=== PATIENT | female | born 1955 | race Caucasian/White ===

== ENCOUNTER 2019-04-14 20:49 | Emergency (ER) | payer BC, OTHER ==
--- OUTSIDE RECORDS SUMMARY | 2019-04-14 21:26 | XMS REPORT | Continuity of Care Document ---
:1955 External Reference #:[id number] Author Name Nay Maurer Care Team Providers Name Role Phone Bradford Cheney M.D. - Family Care Team Information [employer] [phone] Medicine Social History Type Date Description Comments Sex Unknown Procedures Date Code Description Status 04/02/2019 29772 Duplex Scan Extremity Veins, Unilateral Or Limited Study Completed 04/02/2019 42643 Duplex Scan Extremity Veins, Unilateral Or Limited Study Completed Assessments Date Code Description Provider 04/02/2019 M79.605 Pain in left leg Leonel Hall M.D. 04/02/2019 M79.605 Pain in left leg Vas West 2
--- OUTSIDE RECORDS SUMMARY | 2019-04-14 21:27 | XMS REPORT | Continuity of Care Document ---
:1955 External Reference #:[id number] Author Name Bradford Cheney M.D. Address [address] [place] [address] Care Team Providers Name Role Phone Bradford Cheney M.D. 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 Breana Talamantes Group Name: Melvin [address] PayID: [id number] [place] [address] Problems Active Problems Provider Date Benign essential hypertension Bradford Cheney M.D. Onset: 05/31/2010 Asthma without status asthmaticus Bradford Cheney M.D. Onset: 05/31/2010 Hyperlipidemia Bradford Cheney M.D. Onset: 05/31/2010 Pulmonary embolism Bradford Cheney M.D. Onset: 08/29/2011 Herpes zoster without complication Bradford Cheney M.D. Onset: 12/30/2018 Morbid obesity Bradford Cheney M.D. Onset: 12/30/2018 Family History Date Family Member(s) Observation Comments Father Thyroid Disease Father Skin Cancer Father Heart Disease Father Hyperlipidemia Mother due to COPD () Siblings Many Social History Type Date Description Comments Sex Unknown Marital Status Has been 1 time Lives With Spouse Lives With Daughter Occupation Homemaker ETOH Use Denies alcohol use Tobacco Use Start: Unknown No Recreational Drug Use Denies Drug Use Tobacco Use Reviewed: 03/04/19 Patient has never smoked Smoking Status Reviewed: 04/02/19 Patient has never smoked Sun Exposure 11/25/2015 Does not use sunscreen Will be advised to use 30 again Seat Belt/Car Seat Always uses seat belt Allergies, Adverse Reactions, Alerts Active Allergies Reaction Severity Comments Date NKDA 11/23/2011 Seasonal 05/31/2010 Mold 05/31/2010 Dust 05/31/2010 Medications Active Medications SIG Qnty Indications Ordering Date Provider Atorvastatin Calcium Take One Tablet 30tabs Bradford Cheney 08/23/2018 By Mouth Every Aubrey Palma 10mg Tablets Day Ipratropium [place] nebulize 1 dose 75ml J45.31 SurindersaritaBill 12/29/2016 every 6 hours as M.DBishop 0.02% Solution needed Breo Ellipta Inhale One puff 60units J45.901 Bradford Cheney 12/15/2015 By Mouth Every Aubrey Palma 200-25mcg/Inh Aerosol Day Oxybutynin Chloride take one tablet 30tabs N39.3 Bradford Cheney 2015 ER by mouth every Aubrey Palma 15mg Tablets ER 24HR day Metformin HCL ER take one tablet 30tabs E11.9 Bradford Cheney 05/14/2015 500mg by mouth every Aubrey Palma Tablets ER 24HR day Benazepril HCL take one tablet 30tabs Bradford Cheney 03/15/2015 40mg by mouth every Aubrey Palma Tablets day Amlodipine Besylate Take One Tablet 30tabs I10 Bradford Cheney 03/15/2015 5mg By Mouth Every Aubrey Palma Tablets Day Albuterol Sulfate 1 unit via 75ml Bradford Cheney 07/31/2014 nebulizer every 4 Aubrey Palma (2.5mg/3ML) 0.083% hours as needed Nebulizer Levothyroxine Sodium Take One Tablet 30tabs E03.9 Bradford Cheney 2012 By Mouth Every Aubrey Palma 25mcg Tablets Day Furosemide 1 by mouth every 30tabs I10 Bradford Cheney 02/24/2013 20mg Tablets day as needed Aubrey Palma Calcium 1000 + D 1 by mouth every Unknown day [id number] Tablets Oxycodone HCL 1 tab by mouth Unknown 5mg every 6 hours as Tablets needed Morphine Sulfate ER 1 by mouth tid a Unknown day 15mg Tablets ER Omeprazole 1 by mouth every Unknown 40mg day Capsules DR Oxygen at night 2 l/m Unknown Zyrtec-D Allergy & 1 by mouth every Unknown Congestion day as needed 5-120mg Tablets ER 12HR Ventolin HFA 2 puffs q4h prn 18gm Yvan45.909 Bradford Cheney Aubrey Palma 108(90Base) mcg/ac Aerosol History Medications Cephalexin 1 by mouth three 30tabs Cheney, 02/07/2019 - 500mg Tablets times a day Bradford Palma M.D. 02/17/2019 Valacyclovir HCL 1 by mouth three 30tabs B02.9 Cheney, 12/30/2018 - 1gm times a day Bradford Palma M.D. 01/09/2019 Tablets Prednisone 3 tab by mouth 18tabs J45.31 Cheney, 07/08/2018 - 20mg Tablets every day for 3 Bradford Palma M.D. 07/17/2018 days then 2 by mouth daily for 3 days then 1 by mouth daily for 3 days Tramadol HCL 1 by mouth twice a 30tabs Cheney, 04/29/2018 - 50mg Tablets day Bradford Palma M.D. 07/29/2018 Cephalexin 1 by mouth twice a 20caps Cheney, 12/31/2017 - 500mg Capsules day Bradford Palma M.D. 01/10/2018 Prednisone 3 tab by mouth 18tabs J45.31 Cheeny, 11/21/2017 - 20mg Tablets every day for 3 Bradford Palma M.D. 12/24/2017 days then 2 by mouth daily for 3 days then 1 by mouth daily for 3 days Prednisone 3 tab by mouth 18tabs J45.31 Cheney, 11/10/2017 - 20mg Tablets every day for 3 Bradford Palma M.D. 11/19/2017 days then 2 by mouth daily for 3 days then 1 by mouth daily for 3 days Guaifenesin-Codeine Take 1 Teaspoonful 240units Cheney, 08/23/2017 - By Mouth Four Bradford Palma M.D. 12/24/2017 100-10mg/5ML Solution Times A Day Maximum Daily Dose=4 Teaspoonfuls Ibuprofen 1 by mouth four 120tabs Cheney, 05/11/2017 - 600mg Tablets times a day Bradford Palma M.D. 01/17/2018 Prednisone 3 tab by mouth 18tabs J45.22 Cheney, 05/05/2017 - 20mg Tablets every day for 3 Bradford Palma M.D. 05/14/2017 days then 2 by mouth daily for 3 days then 1 by mouth daily for 3 days Amoxicillin/Clavulanat 1 by mouth twice a 20tabs J01. Shravan, 2016 - e Potassium day Bradford Palma M.D. 01/14/2017 875-125mg Tablets Cheratussin ac one teaspoon four 240units J01.90 Cheney, 01/04/2017 - times a day Bradford Palma M.D. 08/09/2017 100-10mg/5ML Syrup Prednisone 3 tab by mouth 18tabs J45.22 Cheney, 01/04/2017 - 20mg Tablets every day for 3 Bradford Palma M.D. 01/13/2017 days then 2 by mouth daily for 3 days then 1 by mouth daily for 3 days Benzonatate 1 cap by mouth 30caps J45.31 Bill Jeronimo 12/29/2016 - 200mg three times a day M.D. 05/05/2017 Capsules as needed for cough Prednisone 3 tab by mouth 18tabs J45.31 Bill Jeronimo 12/29/2016 - 20mg Tablets every day for 3 M.D. 01/07/2017 days then 2 by mouth daily for 3 days then 1 by mouth daily for 3 days Prednisone 2 by mouth every 14tabs J45.31 Cheney, 12/22/2016 - 20mg Tablets day Bradford Palma M.D. 12/29/2016 Sulfamethoxazole/Trime 1 by mouth twice a 20tabs Shravan, 12/22/2016 - thoprim DS day Bradford Palma M.D. 01/01/2017 800-160mg Tablets Percocet one or two every 6 60tabs M25.51 Cheney, 11/16/2016 - 5-325mg Tablets hours 2 Bradford Palma M.D. 05/05/2017 Lipitor take one tablet by 30tabs Cheney, 08/09/2016 - 10mg Tablets mouth every day Bradford Palma M.D. 08/23/2018 Prednisone 2 by mouth every 14tabs J45.31 Cheney, 07/19/2016 - 20mg Tablets day Bradford Palma M.D. 07/26/2016 Hydrocodone-Acetaminop 2 tab by mouth 30tabs Cheney, 04/20/2016 - hen four times a day Bradford Palma M.D. 09/19/2016 5-325mg Tablets as needed Prednisone 2 by mouth every 30tabs Cheney, 03/03/2016 - 20mg Tablets day Bradford Palma M.D. 03/16/2016 Ibuprofen Take One Tablet By 120tabs M54.9 Cheney, 01/25/2016 - 600mg Tablets Mouth Four Times A Bradford Palma M.D. 05/05/2017 Day Tizanidine HCL one at night 30caps S23.3x Cheney, 12/15/2015 - 2mg xA Bradford Palma M.D. 01/25/2016 Capsules Atorvastatin Calcium 1 by mouth every 30tabs Cheney, 12/15/2015 - 10mg day Bradford Palma M.D. 08/09/2016 Tablets Prednisone 3 tab by mouth 18tabs Cheney, 12/01/2015 - 20mg Tablets every day for 3 Bradford Palma M.D. 12/08/2015 days then 2 by mouth daily for 3 days then 1 by mouth daily for 3 days Augmentin 1 by mouth three 30tabs J15.8 Marie Thompson 11/25/2015 - 500-125mg times a day B. 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 12/15/2015 Tablets Amoxicillin 1 by mouth three 30tabs Cheney, 10/07/2015 - 500mg Tablets times a day Bradford Palma M.D. 10/17/2015 Prednisone 3 tab by mouth 18tabs J45.90 Cheney, 08/04/2015 - 20mg Tablets every day for 3 1 Bradford Palma M.D. 08/13/2015 days then 2 by mouth daily for 3 days then 1 by mouth daily for 3 days Amoxicillin/Clavulanat 1 by mouth twice a 30tabs 682.9 Cheney, 2014 - e Potassium day Bradford Palma M.D. 07/07/2015 875-125mg Tablets Lipitor 1 by mouth every 30tabs Cheney, 05/14/2015 - 10mg Tablets day Bradford Palma M.D. 11/25/2015 Cephalexin 1 by mouth three 30caps 682.9 Cheney, 04/30/2015 - 500mg Capsules times a day Bradford Palma M.D. 05/10/2015 Prednisone 3 tab by mouth 18tabs 493.92 Cheney, 04/12/2015 - 20mg Tablets every day for 3 Bradford Palma M.D. 04/21/2015 days then 2 by mouth daily for 3 days then 1 by mouth daily for 3 days Breo Ellipta one inhilation 1units J45.90 Cheney, 04/12/2015 - once daily 1 Bradford Palma M.D. 12/15/2015 100-25mcg/Inh Aerosol Cephalexin 1 by mouth three 30caps 682.9 Cheney, 03/19/2015 - 500mg Capsules times a day Bradford Palma M.D. 03/29/2015 Neomycin/Polymyxin/Hyd fill ear twice a 10cc 380.22 Cheney, 02/12/2015 - rocortisone day Bradford Palma M.D. 02/22/2015 3.5-26367-7 Suspension Advair Diskus 1 puff every day 1units 493.90 Cheney, 02/02/2015 - Bradford Palma M.D. 11/25/2015 250-50mcg/Dose Aerosol Prednisone 2 by mouth every 14tabs 493.90 Cheney, 02/01/2015 - 20mg Tablets day Bradford Palma M.D. 02/08/2015 Cephalexin 1 by mouth three 30tabs 682.9 Cheney, 02/01/2015 - 500mg Tablets times a day Bradford Palma M.D. 02/11/2015 Epipen 2-Shashi injection as 2units J45.90 Cheney, 02/01/2015 - 0.3mg/0.3ML needed 9 Bradford Palma M.D. 07/29/2018 Solution Auto-Inject Symbicort 2 puff twice a day 1units 493.90 Cheney, 02/01/2015 - 160-4.5mcg/Act Bradford Palma M.D. 02/02/2015 Aerosol Amoxicillin 1 by mouth three 30tabs Cheney, 07/27/2014 - 500mg Tablets times a day Bradford Palma M.D. 08/06/2014 Prednisone 2 by mouth every 60tabs 493.92 Cheney, 07/22/2014 - 20mg Tablets day Bradford Palma M.D. 02/01/2015 Amoxicillin 1 by mouth three 30tabs Cheney, 06/29/2014 - 500mg Tablets times a day Bradford Palma M.D. 07/09/2014 Meloxicam 1 by mouth every 30tabs 729.5 Cheney, 05/26/2014 - 15mg Tablets day Bradford Palma M.D. 05/29/2014 Ceftin 1 po bid 20tabs 461.9 Cheney, 02/16/2014 - 250mg Tablets Bradford Palma M.D. 02/26/2014 Prednisone 2 po qd 100tabs 461.9 Cheney, 02/16/2014 - 20mg Tablets Bradford Palma M.D. 07/22/2014 Prednisone 2 po qd 14tabs Cheney, 01/17/2014 - 20mg Tablets Bradford Palma M.D. 01/24/2014 Prednisone 2 po qd 14tabs 493.90 Cheney, 01/02/2014 - 20mg Tablets Bradford Palma M.D. 01/09/2014 Sulfamethoxazole/Trime 1 po bid sx only 20tabs 461.9 Cheney, 10/31/2013 - thoprim DS Bradford Palma M.D. 11/10/2013 800-160mg Tablets Prednisone 2 po qd 14tabs 465.0 Cheney, 09/19/2013 - 20mg Tablets Bradford Palma M.D. 09/26/2013 Prednisone 2 po qd 14tabs 466.0 Cheney, 08/11/2013 - 20mg Tablets Bradford Palma M.D. 08/18/2013 Prednisone 2 po qd 14tabs 493.90 Cheney, 06/21/2013 - 20mg Tablets Bradford Palma M.D. 07/01/2013 Prednisone 2 po qd 14tabs 493.90 Cheney, 06/02/2013 - 20mg Tablets Bradford Palma M.D. 06/09/2013 Topamax 1 by mouth every 30tabs 493.90 Cheney, 06/02/2013 - 100mg Tablets night at bedtime Bradford Palma M.D. 02/12/2015 Prednisone 2 po qd 14tabs 466.0 Cheney, 04/16/2013 - 20mg Tablets Bradford Palma M.D. 04/23/2013 Lotrel take one capsule 30caps 401.1 Cheney, 01/23/2013 - 5-40mg Capsules by mouth every day Brdaford Palma M.D. 03/15/2015 Cephalexin 1 po tid 30tabs 682.2 Cheney, 01/23/2013 - 500mg Tablets Bradford Palma M.D. 02/22/2013 Prednisone 2 po qd 14tabs 466.0 Cheney, 01/16/2013 - 20mg Tablets Bradford Palma M.D. Unknown Prednisone 2 po qd 14tabs 466.0 Cheney, 10/21/2012 - 20mg Tablets Bradford Palma M.D. 10/28/2012 Prednisone 2 po qd 14tabs 466.0 Cheney, 09/17/2012 - 20mg Tablets Bradford Palma M.D. 09/24/2012 Prednisone 2 po qd 14tabs Cheney, 09/02/2012 - 20mg Tablets Bradford Palma M.D. 09/09/2012 Cephalexin 1 po qid 28caps 682.2 Bill Jeronimo 07/30/2012 - 500mg Capsules Aubrey 08/06/2012 Tylenol/Codeine #3 1 or 2 po q4-6 hrs 120tabs 724.2 Cheney, 07/02/2012 - prn pain Bradford Palma M.D. Unknown 300-30mg Tablets Oxybutynin Chloride ER Take One Tablet By 30tabs 788.30 Cheney, 2011 - Mouth Every Day Bradford Palma M.D. 04/12/2015 15mg Tablets ER 24HR Coumadin 1 tab po qd as 415.19 Cheney, 12/14/2011 - 5mg Tablets directed Bradford Palma M.D. Unknown Triamcinolone apply bid 60units Cheney, 10/24/2011 - Acetonide Bradford Palma M.D. Unknown 0.1% Cream Coumadin 1 po qd 30tabs 415.19 Cheney, 10/11/2011 - 7.5mg Tablets Bradford Palma M.D. 12/14/2011 Coumadin 1 po qd 30tabs 415.19 Cheney, 09/19/2011 - 6mg Tablets Bradford Palma M.D. 10/11/2011 Diflucan 1 po qd 1tabs Cheney, 09/19/2011 - 150mg Tablets Bradford Palma M.D. Unknown Coumadin 1 po qd as 30tabs 415.19 Cheney, 08/31/2011 - 5mg Tablets directed Bradford Palma M.D. 09/19/2011 Coumadin 1 po qd 415.19 Cheney, 08/31/2011 - 1mg Tablets Bradford Palma M.D. 08/31/2011 Coumadin 1 daily 30tabs 415.19 Cheney, 08/29/2011 - 3mg Tablets Bradford Palma M.D. 08/31/2011 Refresh P.M. Eye Oint. QHS Cheney, 06/21/2011 - Bradford Palma M.D. Unknown Bactrim DS 1 po bid 20tabs 595.0 Cheney, 06/21/2011 - 800-160mg Bradford Palma M.D. 07/01/2011 Tablets Oxybutynin Chloride ER 1 po qd 30tabs 788.30 Cheney, 11/18/2010 - Bradford Palma M.D. 03/01/2012 10mg Tablets ER 24HR Prednisone 2 po qd 100tabs 493.90 Cheney, 09/12/2010 - 20mg Tablets Bradford Palma M.D. 11/18/2010 Epipen 2-Shashi injection as 2units 493.90 Cheney, 07/08/2010 - 0.3mg/0.3ML needed Bradford Palma M.D. 02/01/2015 Device Astepro 2 puff bid 3units 493.90 Cheney, 07/08/2010 - 0.15% Solution Bradford Palma M.D. Unknown Polytrim 2 qtts both eyes 10cc 493.90 Cheney, 06/02/2010 - tid Bradford Palma M.D. 07/08/2010 66321-7.1Unit/ML-% Solution Lasix 1 po qd 30tabs Cheney, 04/25/2010 - 40mg Tablets Bradford Palma M.D. Unknown Oxybutynin Chloride ER 1 po qd 30tabs Cheney, - Bradford Palma M.D. 06/21/2011 10mg Tablets ER 24HR Meloxicam 1 po qd 30tabs Cheney, - 15mg Tablets Bradford Palma M.D. Unknown Topiramate 1 tab by mouth 60tabs Cheney, - 100mg Tablets every day X2 Bradford Palma M.D. Unknown Sulfamethoxazole/Trime 1 tab by mouth 20tabs Unknown - thoprim DS twice a day 5 Days Unknown 800-160mg Tablets Calcium 1200 1 po qd Cheney, - Bradford Palma M.D. 02/04/2019 5724-8916cg-Dihu Chewtabs Vitamin D 1 po qd Unknown - 1000Unit 02/04/2019 Capsules Omeprazole Take One Capsule 30caps Cheney, - 20mg Capsules By Mouth Every Bradford Palma M.D. 12/30/2018 DR Other Day Meloxicam 1 by mouth every Unknown - 15mg Tablets day 02/02/2018 Morphine Sulfate ER 1 by mouth 3 x a Unknown - 10mg day 02/04/2019 Caps ER 24HR Xarelto 1 by mouth every Unknown - 10mg Tablets day 03/06/2019 Pepcid 1 po bid prn 60tabs Cheney, - 20mg Tablets Bradford Palma M.D. 11/18/2010 Prednisone Cheney, - 2.5mg Tablets Bradford Palma M.D. 09/12/2010 Zolpidem Tartrate q hs 30tabs Cheney, - 10mg Bradford Palma M.D. Unknown Tablets Piroxicam 1 po qd Cheney, - 20mg Capsules Bradford Palma M.D. Unknown Lotrel 1 po qd 30caps 401.1 Cheney, - 5-20mg Capsules Bradford Palma M.D. 01/23/2013 Vesicare Cheney, - 10mg Tablets Bradford Palma M.D. Unknown Cyclobenzaprine HCL 1 tab po tid prn 30tabs Cheney, - 10mg muscle pain or Bradford Palma M.D. 05/31/2010 Tablets stiffness Hydrocodone Unknown - 10/325 Unknown Tablets Cyclobenzaprine HCL 1 tab po tid prn 30tabs Cheney, - 10mg muscle pain or Bradford Palma M.D. Unknown Tablets stiffness Lyrica 1 po bid 90caps Cheney, - 75mg Capsules Bradford Palma M.D. 06/02/2010 Advair Diskus 1 puff every day 1units 493.90 Cheney, - Bradford Palma M.D. 02/01/2015 250-50mcg/Dose Aerosol Immunizations CPT Code Status Date Vaccine Lot # [id number] Given 07/22/2018 Influenza Virus Vaccine, Quadrivalent, Split [id number] Virus, Im Use 3 &Up 79718 Given 08/06/2017 Influenza Virus Vaccine, Quadrivalent, Split [id number] Virus, Im Use 3 &Up 41788 Given 06/16/2016 Influenza Virus Vaccine, Quadrivalent, Split [id number] Virus, Im Use 3 &Up 09000 Given 03/16/2016 Shingles (Zoster) Vaccine [id number] 35452 Given 08/19/2015 Influenza Virus Vaccine, Quadrivalent, Split [id number] Virus, Im Use 3 &Up 87782 Given 07/08/2014 Influenza Virus Vaccine, Quadrivalent, Split [id number] Virus, Im Use 3 &Up 73361 Given 06/27/2012 Influenza Vaccine [id number] 50109 Given 06/21/2011 Influenza Vaccine [id number] 99018 Given 07/08/2010 Influenza Vaccine [id number] 54096 Given 08/27/2009 H1N1 Administration 22718 Given 08/27/2009 H1N1 Flu Vaccine 12484 Given 07/12/2009 Influenza Vaccine 29218 Given 07/20/2008 Adacel-[id number] 11-64 Yrs Of Age 85305 Given 07/20/2008 Influenza Vaccine 22856 Given 08/15/2007 Influenza Vaccine 31639 Given 09/13/2006 Influenza Vaccine 50151 Given 09/11/2005 Influenza Vaccine 32124 Given 07/15/2004 Influenza Vaccine 65322 Given 08/14/2003 Influenza Vaccine 34075 Given 10/30/2000 Pneumococcal Immunization 07924 Given 07/22/1998 Influenza Immunization Vital Signs Date Vital Result Comment 04/02/2019 1:38pm Weight 273.00 lb BP Systolic 124 mmHg BP Diastolic 88 mmHg Body Temperature 98.0 F Height 62 inches 5'2" BMI (Body Mass Index) 49.9 kg/m2 03/04/2019 10:05am Weight 270.00 lb BP Systolic 120 mmHg BP Diastolic 80 mmHg Body Temperature 97.5 F Height 62 inches 5'2" BMI (Body Mass Index) 49.4 kg/m2 02/04/2019 1:08pm Weight 269.00 lb BP Systolic 120 mmHg BP Diastolic 70 mmHg Body Temperature 97.5 F Height 62 inches 5'2" BMI (Body Mass Index) 49.2 kg/m2 12/30/2018 2:23pm Weight 276.00 lb BP Systolic 140 mmHg BP Diastolic 80 mmHg Body Temperature 97.9 F Height 62 inches 5'2" BMI (Body Mass Index) 50.5 kg/m2 12/02/2018 10:15am Weight 278.00 lb BP Systolic 130 mmHg BP Diastolic 80 mmHg Body Temperature 97.6 F Height 62 inches 5'2" BMI (Body Mass Index) 50.8 kg/m2 10/28/2018 1:04pm Weight 297.00 lb BP Systolic 155 mmHg BP Diastolic 100 mmHg Body Temperature 97.3 F Height 62 inches 5'2" BMI (Body Mass Index) 54.3 kg/m2 10/01/2018 1:01pm Weight 301.00 lb BP Systolic 140 mmHg BP Diastolic 80 mmHg Body Temperature 98.7 F Height 62 inches 5'2" Heart Rate 100 /min BMI (Body Mass Index) 55.0 kg/m2 07/29/2018 11:05am Weight 306.00 lb BP Systolic 120 mmHg BP Diastolic 70 mmHg Body Temperature 98.2 F Height 62 inches 5'2" BMI (Body Mass Index) 56.0 kg/m2 05/02/2018 1:48pm Weight 310.00 lb BP Systolic 138 mmHg lg cuff BP Diastolic 84 mmHg lg cuff Height 62 inches 5'2" Heart Rate 66 /min BMI (Body Mass Index) 56.7 kg/m2 02/02/2018 9:56am Weight 305.00 lb BP Systolic 128 mmHg BP Diastolic 80 mmHg Height 62 inches 5'2" Heart Rate 68 /min Respiratory Rate 16 /min BMI (Body Mass Index) 55.8 kg/m2 01/17/2018 10:43am Weight 303.00 lb BP Systolic 140 mmHg BP Diastolic 90 mmHg Body Temperature 97.4 F Height 61.5 inches 5'1.50" BMI (Body Mass Index) 56.3 kg/m2 12/24/2017 2:14pm Weight 302.00 lb BP Systolic 134 mmHg BP Diastolic 84 mmHg Body Temperature 98.3 F Height 61.5 inches 5'1.50" BMI (Body Mass Index) 56.1 kg/m2 11/10/2017 10:47am Weight 293.12 lb BP Systolic 136 mmHg BP Diastolic 84 mmHg Body Temperature 97.8 F 08/09/2017 2:23pm Weight 299.00 lb BP Systolic 140 mmHg BP Diastolic 90 mmHg Body Temperature 98.1 F Height 61.5 inches 5'1.50" BMI (Body Mass Index) 55.6 kg/m2 05/05/2017 9:33am Weight 304.12 lb BP Systolic 130 mmHg BP Diastolic 80 mmHg Height 61.5 inches 5'1.50" BMI (Body Mass Index) 56.5 kg/m2 01/04/2017 10:23am Weight 304.00 lb BP Systolic 140 mmHg BP Diastolic 80 mmHg Body Temperature 97.8 F Height 61 inches 5'1" BMI (Body Mass Index) 57.4 kg/m2 12/29/2016 8:10am BP Systolic 138 mmHg BP Diastolic 80 mmHg Body Temperature 98.9 F Height 61 inches 5'1" 11/16/2016 1:49pm Weight 295.00 lb BP Systolic 130 mmHg BP Diastolic 80 mmHg Body Temperature 98.0 F Height 61 inches 5'1" BMI (Body Mass Index) 55.7 kg/m2 09/19/2016 10:30am Weight 301.00 lb BP Systolic 140 mmHg BP Diastolic 80 mmHg Body Temperature 98.4 F Height 61 inches 5'1" BMI (Body Mass Index) 56.9 kg/m2 07/19/2016 10:51am Weight 292.00 lb BP Systolic 142 mmHg BP Diastolic 80 mmHg Body Temperature 98.2 F Height 61 inches 5'1" BMI (Body Mass Index) 55.2 kg/m2 06/16/2016 9:00am Weight 293.00 lb BP Systolic 126 mmHg BP Diastolic 80 mmHg Body Temperature 98.0 F Height 61 inches 5'1" BMI (Body Mass Index) 55.4 kg/m2 03/16/2016 10:03am Weight 302.00 lb BP Systolic 138 mmHg BP Diastolic 82 mmHg Body Temperature 97.6 F Height 61 inches 5'1" BMI (Body Mass Index) 57.1 kg/m2 02/21/2016 4:43pm Weight 293.00 lb BP Systolic 132 mmHg BP Diastolic 70 mmHg Body Temperature 97.9 F Height 61 inches 5'1" BMI (Body Mass Index) 55.4 kg/m2 01/25/2016 1:59pm Weight 297.00 lb BP Systolic 132 mmHg BP Diastolic 80 mmHg Body Temperature 98.7 F Height 61 inches 5'1" BMI (Body Mass Index) 56.1 kg/m2 12/15/2015 10:09am Weight 280.00 lb BP Systolic 130 mmHg BP Diastolic 76 mmHg Body Temperature 98.3 F Height 61 inches 5'1" BMI (Body Mass Index) 52.9 kg/m2 12/01/2015 8:16am Weight 275.00 lb BP Systolic 142 mmHg BP Diastolic 86 mmHg Body Temperature 98.6 F Height 61 inches 5'1" BMI (Body Mass Index) 52.0 kg/m2 11/25/2015 3:04pm Weight 278.50 lb BP Systolic 160 mmHg BP Diastolic 90 mmHg Body Temperature 98.4 F Height 61 inches 5'1" Heart Rate 60 /min BMI (Body Mass Index) 52.6 kg/m2 08/19/2015 10:57am Weight 277.00 lb BP Systolic 138 mmHg BP Diastolic 88 mmHg Body Temperature 98.1 F Height 61 inches 5'1" BMI (Body Mass Index) 52.3 kg/m2 08/04/2015 10:04am Weight 277.00 lb BP Systolic 146 mmHg BP Diastolic 84 mmHg Body Temperature 98.3 F Height 61 inches 5'1" BMI (Body Mass Index) 52.3 kg/m2 06/22/2015 4:22pm Weight 284.00 lb BP Systolic 130 mmHg BP Diastolic 80 mmHg Body Temperature 97.8 F Height 61 inches 5'1" BMI (Body Mass Index) 53.7 kg/m2 05/14/2015 11:31am Weight 292.00 lb BP Systolic 150 mmHg BP Diastolic 80 mmHg Body Temperature 98.1 F Height 61 inches 5'1" BMI (Body Mass Index) 55.2 kg/m2 04/12/2015 4:24pm Weight 287.00 lb BP Systolic 132 mmHg BP Diastolic 80 mmHg Body Temperature 98.5 F Height 61 inches 5'1" BMI (Body Mass Index) 54.2 kg/m2 03/19/2015 1:59pm Weight 288.50 lb BP Systolic 150 mmHg BP Diastolic 90 mmHg Body Temperature 99.3 F Height 61 inches 5'1" Heart Rate 80 /min BMI (Body Mass Index) 54.5 kg/m2 02/12/2015 3:02pm Weight 283.12 lb BP Systolic 122 mmHg BP Diastolic 80 mmHg Body Temperature 97.7 F Height 61 inches 5'1" Heart Rate 76 /min BMI (Body Mass Index) 53.5 kg/m2 Left Visual Acuity Distance 20/30 with correction Right Visual Acuity Distance 20/25 color passed 02/01/2015 1:51pm Weight 289.00 lb BP Systolic 144 mmHg BP Diastolic 90 mmHg Body Temperature 97.9 F Height 61.75 inches 5'1.75" BMI (Body Mass Index) 53.3 kg/m2 07/22/2014 4:01pm Weight 290.38 lb BP Systolic 112 mmHg BP Diastolic 74 mmHg Body Temperature 98.3 F Height 61.75 inches 5'1.75" Heart Rate 98 /min O2 % BldC Oximetry 98 % BMI (Body Mass Index) 53.5 kg/m2 05/26/2014 1:51pm Weight 284.00 lb BP Systolic 140 mmHg BP Diastolic 80 mmHg Body Temperature 98.1 F Height 61.75 inches 5'1.75" BMI (Body Mass Index) 52.4 kg/m2 02/16/2014 10:45am Weight 288.00 lb BP Systolic 128 mmHg BP Diastolic 80 mmHg Body Temperature 98.6 F Height 61.75 inches 5'1.75" BMI (Body Mass Index) 53.1 kg/m2 01/02/2014 3:39pm Weight 284.00 lb BP Systolic 122 mmHg BP Diastolic 82 mmHg Body Temperature 98.4 F Height 61.75 inches 5'1.75" Heart Rate 68 /min 82 O2 % BldC Oximetry 96 % BMI (Body Mass Index) 52.4 kg/m2 10/31/2013 10:22am Weight 291.00 lb BP Systolic 156 mmHg lg cuff BP Diastolic 94 mmHg lg cuff Body Temperature 98.2 F Height 61.75 inches 5'1.75" Heart Rate 80 /min O2 % BldC Oximetry 94 % BMI (Body Mass Index) 53.7 kg/m2 09/19/2013 2:09pm Weight 292.00 lb BP Systolic 130 mmHg large BP Diastolic 80 mmHg large Body Temperature 98.4 F Height 61.75 inches 5'1.75" Heart Rate 80 /min O2 % BldC Oximetry 95 % BMI (Body Mass Index) 53.8 kg/m2 08/11/2013 1:36pm Weight 286.00 lb BP Systolic 122 mmHg BP Diastolic 70 mmHg Body Temperature 98.7 F Height 61.75 inches 5'1.75" BMI (Body Mass Index) 52.7 kg/m2 07/21/2013 10:46am Weight 288.00 lb BP Systolic 118 mmHg BP Diastolic 80 mmHg Body Temperature 97.5 F Height 61.75 inches 5'1.75" BMI (Body Mass Index) 53.1 kg/m2 07/16/2013 9:16am Weight 290.38 lb BP Systolic 124 mmHg BP Diastolic 94 mmHg Body Temperature 97.8 F Height 61.75 inches 5'1.75" Heart Rate 80 /min BMI (Body Mass Index) 53.5 kg/m2 06/02/2013 10:25am Weight 283.00 lb BP Systolic 140 mmHg Large Cuff BP Diastolic 90 mmHg Large Cuff Body Temperature 98.2 F Height 61.75 inches 5'1.75" BMI (Body Mass Index) 52.2 kg/m2 02/24/2013 10:22am Weight 273.00 lb BP Systolic 130 mmHg BP Diastolic 88 mmHg Body Temperature 98.4 F Height 61.75 inches 5'1.75" BMI (Body Mass Index) 50.3 kg/m2 01/23/2013 9:12am Weight 269.50 lb BP Systolic 142 mmHg BP Diastolic 82 mmHg Body Temperature 98.3 F Height 61.75 inches 5'1.75" Heart Rate 72 /min BMI (Body Mass Index) 49.7 kg/m2 01/16/2013 8:28am Weight 264.00 lb BP Systolic 134 mmHg BP Diastolic 80 mmHg Body Temperature 98.2 F Height 61.75 inches 5'1.75" Heart Rate 80 /min O2 % BldC Oximetry 96 % BMI (Body Mass Index) 48.7 kg/m2 10/21/2012 12:58pm Weight 267.00 lb BP Systolic 130 mmHg Large Cuff BP Diastolic 90 mmHg Large Cuff Body Temperature 98.7 F Height 61.75 inches 5'1.75" BMI (Body Mass Index) 49.2 kg/m2 09/17/2012 2:30pm Weight 261.00 lb BP Systolic 144 mmHg BP Diastolic 90 mmHg Body Temperature 99.2 F Height 61.75 inches 5'1.75" BMI (Body Mass Index) 48.1 kg/m2 07/30/2012 4:16pm Weight 254.00 lb BP Systolic 118 mmHg BP Diastolic 70 mmHg Body Temperature 98.3 F Height 61.75 inches 5'1.75" Heart Rate 100 /min Respiratory Rate 18 /min BMI (Body Mass Index) 46.8 kg/m2 07/02/2012 9:46am Weight 250.00 lb BP Systolic 130 mmHg BP Diastolic 88 mmHg Body Temperature 98.1 F Height 61.75 inches 5'1.75" BMI (Body Mass Index) 46.1 kg/m2 06/27/2012 2:24pm Weight 251.00 lb BP Systolic 122 mmHg BP Diastolic 80 mmHg Body Temperature 98.8 F Height 61.75 inches 5'1.75" Heart Rate 80 /min BMI (Body Mass Index) 46.3 kg/m2 03/01/2012 11:12am Weight 243.00 lb BP Systolic 134 mmHg BP Diastolic 84 mmHg Body Temperature 98.6 F Height 61.75 inches 5'1.75" Heart Rate 88 /min BMI (Body Mass Index) 44.8 kg/m2 06/21/2011 2:46pm Weight 245.00 lb BP Systolic 132 mmHg BP Diastolic 80 mmHg Body Temperature 97.4 F 01/19/2011 10:10am Weight 229.00 lb BP Systolic 118 mmHg BP Diastolic 96 mmHg Body Temperature 98.4 F Height 61.75 inches 5'1.75" Heart Rate 92 /min BMI (Body Mass Index) 42.2 kg/m2 11/18/2010 11:29am Weight 230.00 lb BP Systolic 119 mmHg BP Diastolic 72 mmHg Body Temperature 98.2 F 09/12/2010 9:31am Weight 240.00 lb BP Systolic 154 mmHg BP Diastolic 96 mmHg Body Temperature 98.0 F Heart Rate 100 /min O2 % BldC Oximetry 98 % 07/08/2010 9:59am Weight 275.00 lb BP Systolic 152 mmHg Large Cuff BP Diastolic 88 mmHg Large Cuff Body Temperature 98.0 F Heart Rate 80 /min O2 % BldC Oximetry 98 % 06/02/2010 11:21am Weight 265.00 lb BP Systolic 136 mmHg 142/76 on 06/01 at pain [id number] BP Diastolic 92 mmHg 142/76 on 06/01 at pain [id number] Heart Rate 76 /min Results Test Date Facility Test Result H/L Range Note Hemoglobin A1c 02/04/2019 [facility] Hemoglobin A1c @ 6.2 % High (4.0- 6.0) 1 Est Average Glucose 131 mg/dL CMP 02/04/2019 [facility] Sodium 140 mmol/L (136-145) Potassium 4.1 mmol/L (3.6-5.2) Chloride 109 mmol/L High (100-108) Co2 23 mmol/L (22-31) Anion Gap 8 mmol/L (7-16) Urea Nitrogen 11 mg/dL (7-24) Creatinine 0.62 mg/dL (0.60-1.00) BUN/Creat Ratio 17.7 RATIO (10.0-20.0) Glucose 123 mg/dL High (70-99) Calcium 9.6 mg/dL (8.4-10.2) Total Protein 7.4 g/dL (6.4-8.2) Albumin 3.8 g/dL (3.2-4.5) Globulin 3.6 g/dL (2.7-4.3) Alb/Glob Ratio 1.1 RATIO Alkaline Phosphatase 129 U/L High (45-117) Bilirubin,Total 0.7 mg/dL (0.0-1.0) Ast (Sgot) 35 U/L (11-39) Alt (SGPT) 29 U/L (12-78) GFR >60 ml/min/1.73m2 (>59) GFR ( Amer) >60 ml/min/1.73m2 (>59) GFR Interpretation <SEE NOTE> 2 MRSA Screen By PCR Tj Andre 02/04/2019 [facility] Specimen Description NASAL Meth Res Staph Aur NEGATIVE (Neg) CBC With Diff 02/04/2019 [facility] WBC 8.0 10*3/uL (4.1-11.0) RBC 4.81 10*6/uL (4.00-5.40) HGB 14.4 g/dL (12.0-16.0) HCT 43.9 % (36.0-47.0) MCV 91.3 fL (80.0-95.0) MCH 29.9 pg (27.0-32.0) MCHC 32.8 g/dL (32.0-36.0) RDW 15.4 % High (10.5-14.5) PLT 364 10*3/uL (150-450) MPV 8.8 fL (7.1-10.7) Neut % 55.8 % (35.0-75.0) Lymph % 29.6 % (16.0-52.0) [place] % 8.5 % High (0.0-8.0) Eos % 5.2 % High (0.0-5.0) Baso % 0.9 % (0.0-4.0) Neut # 4.4 10*3/uL (1.8-7.7) Lymph # 2.4 10*3/uL (1.2-4.8) [place] # 0.7 10*3/uL (0.0-0.8) Eos # 0.4 10*3/uL (0.0-0.5) Baso # 0.1 10*3/uL (0.0-0.2) Protime 02/04/2019 [facility] PT 11.9 s (9.2-11.9) Inr 1.17 3 Laboratory test 02/04/2019 [facility] Urine Culture SPECIMEN DESCRIP 4 finding <SEE NOTE> Urinalysis 02/04/2019 [facility] Color YELLOW Appearance CLOUDY Spec Grav Urine 1.014 (1.003-1.030) PH Urine 6.5 (5.0-7.5) Leuk Esterase 2+ Abnormal (Neg) Nitrite Urine NEGATIVE (Neg) Protein Urine NEGATIVE (Neg) Glucose Urine NEGATIVE (Neg) Ketone Urine NEGATIVE (Neg) Urobilinogen 1.0 mg/dL (0-1.0) Bilirubin Urine NEGATIVE (Neg) Blood/HGB Urine TRACE Abnormal (Neg) Epithelial Cells NEGATIVE [HPF] (Neg) Hyaline Casts 4.2 [LPF] (0-5) Bacteria 4+ [HPF] Abnormal (Neg) Urine WBC 25.3 [HPF] High (0-8) Urine RBC 3.1 [HPF] High (0-3) Activated Partial 02/04/2019 [facility] Aptt 29.6 s (22.0-34.3) Thromboplasin Time Basic Metabolic Panel 11/25/2018 [facility] Sodium 142 mmol/L (136-145 ) Potassium 4.7 mmol/L (3.6-5.2) Chloride 106 mmol/L (100-108) Co2 28 mmol/L (22-31) Anion Gap 8 mmol/L (7-16) Urea Nitrogen 6 mg/dL Low (7-24) Creatinine 0.63 mg/dL (0.60-1.00) BUN/Creat Ratio 9.5 RATIO Low (10.0-20.0) Glucose 112 mg/dL High (70-99) 5 Calcium 9.5 mg/dL (8.4-10.2) GFR >60 ml/min/1.73m2 (>59) GFR ( Amer) >60 ml/min/1.73m2 (>59) GFR Interpretation <SEE NOTE> 6 Lipid 11/25/2018 [facility] Cholesterol @ 102 mg/dL (0-200) Triglyceride @ 101 mg/dL (30-200) 7 HDL Cholesterol @ 42 mg/dL (>40) 8 Chol/HDL Ratio 2.4 RATIO 9 LDL Chol (Calc) 40 mg/dL (<130) 10 Hemoglobin A1c 11/25/2018 [facility] Hemoglobin A1c @ 5.9 % (4.0-6.0) 11 Est Average Glucose 123 mg/dL [place] Urine Albumin @ 11/25/2018 [facility] Albumin, Urine 1.42 mg/dL Creatinine,Urine 70.30 mg/dL Alb/Creatinine Ratio 20.2 ug/mg (0.0-29.9) Hemoglobin A1c 07/22/2018 [facility] Hemoglobin A1c @ 6.2 % High (4.0- 6.0) 12 Est Average Glucose 131 mg/dL Basic Metabolic Panel 07/22/2018 [facility] Sodium 143 mmol/L (136-145 ) Potassium 4.4 mmol/L (3.6-5.2) Chloride 108 mmol/L (100-108) Co2 28 mmol/L (22-31) Anion Gap 7 mmol/L (7-16) Urea Nitrogen 21 mg/dL (7-24) Creatinine 0.79 mg/dL (0.60-1.00) BUN/Creat Ratio 26.6 RATIO High (10.0-20.0) Glucose 111 mg/dL High (70-99) 13 Calcium 9.1 mg/dL (8.4-10.2) GFR >60 ml/min/1.73m2 (>59) GFR ( Amer) >60 ml/min/1.73m2 (>59) GFR Interpretation <SEE NOTE> 14 Basic Metabolic Panel 04/29/2018 [facility] Sodium 142 mmol/L (136-145 ) Potassium 4.3 mmol/L (3.6-5.2) Chloride 107 mmol/L (100-108) Co2 27 mmol/L (22-31) Anion Gap 8 mmol/L (7-16) Urea Nitrogen 14 mg/dL (7-24) Creatinine 0.75 mg/dL (0.60-1.00) BUN/Creat Ratio 18.7 RATIO (10.0-20.0) Glucose 80 mg/dL (70-99) 15 Calcium 9.5 mg/dL (8.4-10.2) GFR >60 ml/min/1.73m2 (>59) GFR ( Amer) >60 ml/min/1.73m2 (>59) GFR Interpretation <SEE NOTE> 16 Hemoglobin A1c 04/29/2018 [facility] Hemoglobin A1c @ 6.3 % High (4.0- 6.0) 17 Est Average Glucose 134 mg/dL [place] Urine Albumin @ 04/29/2018 [facility] Albumin, Urine 0.88 mg/dL Creatinine,Urine 51.50 mg/dL Alb/Creatinine Ratio 17.1 ug/mg (0.0-29.9) Lipid 04/29/2018 [facility] Cholesterol @ 108 mg/dL (0-200) Triglyceride @ 78 mg/dL (30-200) 18 HDL Cholesterol @ 53 mg/dL (>40) 19 Chol/HDL Ratio 2.0 RATIO 20 LDL Chol (Calc) 39 mg/dL (<130) 21 Basic Metabolic Panel 02/01/2018 [facility] Sodium 142 mmol/L (136-145 ) Potassium 4.4 mmol/L (3.6-5.2) Chloride 109 mmol/L High (100-108) Co2 29 mmol/L (22-31) Anion Gap 4 mmol/L Low (7-16) Urea Nitrogen 16 mg/dL (7-24) Creatinine 0.70 mg/dL (0.60-1.00) BUN/Creat Ratio 22.9 RATIO High (10.0-20.0) Glucose 90 mg/dL (70-99) 22 Calcium 9.1 mg/dL (8.4-10.2) GFR >60 ml/min/1.73m2 (>59) GFR ( Amer) >60 ml/min/1.73m2 (>59) GFR Interpretation <SEE NOTE> 23 Hemoglobin A1c 02/01/2018 [facility] Hemoglobin A1c @ 6.2 % High (4.0- 6.0) Est Average Glucose 131 mg/dL 24 [place] Urine Albumin @ 02/01/2018 [facility] Albumin, Urine 1.54 mg/dL Creatinine,Urine 53.90 mg/dL Alb/Creatinine Ratio 28.6 ug/mg (0.0-29.9) Laboratory test 12/24/2017 [facility] Urine Culture SPECIMEN DESCRI> 25 finding Basic Metabolic 08/06/2017 [facility] Sodium 144 mmol/L (136-145 Panel ) Potassium 4.7 mmol/L (3.6-5.2) Chloride 108 mmol/L (100-108) Co2 29 mmol/L (22-31) Anion Gap 7 mmol/L (7-16) Urea Nitrogen 14 mg/dL (7-24) Creatinine 0.71 mg/dL (0.60-1.00) BUN/Creat Ratio 19.7 RATIO (10.0-20.0) Glucose 114 mg/dL High (70-99) 26 Calcium 9.1 mg/dL (8.4-10.2) GFR >60 ml/min/1.73m2 (>59) GFR ( Amer) >60 ml/min/1.73m2 (>59) GFR Interpretation <SEE NOTE> 27 Hemoglobin A1c 08/06/2017 [facility] Hemoglobin A1c @ 6.1 % High (4.0- 6.0) Est Average Glucose 128 mg/dL 28 Laboratory 08/06/2017 [facility] TSH,Ultrasensitive @ 2.140 (0.360- 4.170) test finding mIU/L Basic 05/01/2017 [facility] Sodium 143 (136-145) Metabolic mmol/L Panel Potassium 4.4 mmol/L (3.6-5.2) Chloride 107 mmol/L (100-108) Co2 25 mmol/L (22-31) Anion Gap 11 mmol/L (7-16) Urea Nitrogen 9 mg/dL (7-24) Creatinine 0.61 mg/dL (0.60-1.00) BUN/Creat Ratio 14.8 RATIO (10.0-20.0) Glucose 106 mg/dL High (70-99) 29 Calcium 9.5 mg/dL (8.4-10.2) GFR >60 ml/min/1.73m2 (>59) GFR ( Amer) >60 ml/min/1.73m2 (>59) GFR Interpretation <SEE NOTE> 30 Hemoglobin A1c 05/01/2017 [facility] Hemoglobin A1c @ 6.4 % High (4.0- 6.0) Est Average Glucose 137 mg/dL 31 [place] Urine Albumin @ 05/01/2017 [facility] Albumin, Urine 0.80 mg/dL Creatinine,Urine 30.80 mg/dL Alb/Creatinine Ratio 26.0 ug/mg (0.0-29.9) Lipid 05/01/2017 [facility] Cholesterol @ 103 mg/dL (0-200) Triglyceride @ 98 mg/dL (30-200) 32 HDL Cholesterol @ 49 mg/dL (>40) 33 Chol/HDL Ratio 2.1 RATIO 34 LDL Chol (Calc) 34 mg/dL (<130) 35 Laboratory test 05/01/2017 [facility] Hepatitis C AB @ NEGATIVE (Neg) 36 finding Basic Metabolic 12/29/2016 [facility] Sodium 141 mmol/L (136-145) Panel Potassium 4.7 mmol/L (3.6-5.2) Chloride 104 mmol/L (100-108) Co2 30 mmol/L (22-31) Anion Gap 7 mmol/L (7-16) Urea Nitrogen 16 mg/dL (7-24) Creatinine 0.98 mg/dL (0.60-1.00) BUN/Creat Ratio 16.3 RATIO (10.0-20.0) Glucose 81 mg/dL (70-99) 37 Calcium 9.2 mg/dL (8.4-10.2) GFR 58 ml/min/1.73m2 Low (>59) GFR ( Amer) >60 ml/min/1.73m2 (>59) GFR Interpretation <SEE NOTE> 38 Hemoglobin A1c 12/29/2016 [facility] Hemoglobin A1c @ 6.2 % High (4.0- 6.0) Est Average Glucose 131 mg/dL 39 [place] Urine Albumin @ 12/29/2016 [facility] Albumin, Urine 3.21 mg/dL Creatinine,Urine 45.80 mg/dL Alb/Creatinine Ratio 70.1 ug/mg High (0.0-29.9) Lipid 09/15/2016 [facility] Cholesterol @ 116 mg/dL (0-200) Triglyceride @ 70 mg/dL (30-200) 40 HDL Cholesterol @ 73 mg/dL (>40) 41 Chol/HDL Ratio 1.6 RATIO 42 LDL Chol (Calc) 29 mg/dL (<130) 43 Laboratory 09/15/2016 [facility] TSH,Ultrasensitive @ 2.520 (0.360- 4.170) test finding mIU/L Hemoglobin 09/15/2016 [facility] Hemoglobin A1c @ 6.2 % High (4.0-6.0) A1c Est Average Glucose 131 mg/dL 44 Basic Metabolic Panel 09/15/2016 [facility] Sodium 143 mmol/L (136-145 ) Potassium 4.3 mmol/L (3.6-5.2) Chloride 105 mmol/L (100-108) Co2 29 mmol/L (22-31) Anion Gap 9 mmol/L (7-16) Urea Nitrogen 13 mg/dL (7-24) Creatinine 0.69 mg/dL (0.60-1.00) BUN/Creat Ratio 18.8 RATIO (10.0-20.0) Glucose 97 mg/dL (70-99) 45 Calcium 9.2 mg/dL (8.4-10.2) GFR >60 ml/min/1.73m2 (>59) GFR ( Amer) >60 ml/min/1.73m2 (>59) GFR Interpretation <SEE NOTE> 46 Basic Metabolic Panel 06/13/2016 [facility] Sodium 145 mmol/L (136-145 ) Potassium 4.4 mmol/L (3.6-5.2) Chloride 108 mmol/L (100-108) Co2 29 mmol/L (22-31) Anion Gap 8 mmol/L (7-16) Urea Nitrogen 10 mg/dL (7-24) Creatinine 0.58 mg/dL Low (0.60-1.00) BUN/Creat Ratio 17.2 RATIO (10.0-20.0) Glucose 99 mg/dL (70-99) 47 Calcium 9.2 mg/dL (8.4-10.2) GFR >60 ml/min/1.73m2 (>59) GFR ( Amer) >60 ml/min/1.73m2 (>59) GFR Interpretation <SEE NOTE> 48 Hemoglobin A1c 06/13/2016 [facility] Hemoglobin A1c @ 6.0 % (4.0-6.0) Est Average Glucose 126 mg/dL 49 Lipid 03/14/2016 [facility] Cholesterol @ 145 mg/dL (0-200) Triglyceride @ 125 mg/dL (30-200) 50 HDL Cholesterol @ 72 mg/dL (>40) 51 Chol/HDL Ratio 2.0 RATIO 52 LDL Chol (Calc) 48 mg/dL (<130) 53 Basic Metabolic Panel 03/14/2016 [facility] Sodium 144 mmol/L (136-145 ) Potassium 5.2 mmol/L (3.6-5.2) Chloride 106 mmol/L (100-108) Co2 31 mmol/L (22-31) Anion Gap 7 mmol/L (7-16) Urea Nitrogen 13 mg/dL (7-24) Creatinine 0.76 mg/dL (0.60-1.00) BUN/Creat Ratio 17.1 RATIO (10.0-20.0) Glucose 108 mg/dL High (70-99) 54 Calcium 8.9 mg/dL (8.4-10.2) GFR >60 ml/min/1.73m2 (>59) GFR ( Amer) >60 ml/min/1.73m2 (>59) GFR Interpretation <SEE NOTE> 55 [place] Urine Albumin @ 03/14/2016 [facility] Albumin, Urine 0.87 mg/dL Creatinine,Urine 43.30 mg/dL Alb/Creatinine Ratio 20.1 ug/mg (0.0-29.9) Hemoglobin A1c 03/14/2016 [facility] Hemoglobin A1c @ 6.1 % High (4.0- 6.0) Est Average Glucose 128 mg/dL 56 Laboratory test 02/21/2016 [facility] Thin LABORATORY ALLIA 57 finding <SEE NOTE> Basic Metabolic 12/01/2015 [facility] Sodium 143 mmol/L (136-145) Panel Potassium 4.5 mmol/L (3.6-5.2) Chloride 104 mmol/L (100-108) Co2 30 mmol/L (22-31) Anion Gap 9 mmol/L (7-16) Urea Nitrogen 11 mg/dL (7-24) Creatinine 0.69 mg/dL (0.60-1.00) BUN/Creat Ratio 15.9 RATIO (10.0-20.0) Glucose 83 mg/dL (70-99) 58 Calcium 9.4 mg/dL (8.4-10.2) GFR >60 ml/min/1.73m2 (>59) GFR ( Amer) >60 ml/min/1.73m2 (>59) GFR Interpretation <SEE NOTE> 59 [place] Urine Albumin @ 12/01/2015 [facility] Albumin, Urine 0.68 mg/dL Creatinine,Urine 30.00 mg/dL Alb/Creatinine Ratio 22.7 ug/mg (0.0-29.9) Hemoglobin A1c 12/01/2015 [facility] Hemoglobin A1c @ 6.0 % (4.0-6.0) Est Average Glucose 126 mg/dL 60 Basic Metabolic Panel 08/17/2015 [facility] Sodium 141 mmol/L (136-145 ) Potassium 5.1 mmol/L (3.6-5.2) Chloride 104 mmol/L (100-108) Co2 32 mmol/L High (22-31) Anion Gap 5 mmol/L Low (7-16) Urea Nitrogen 11 mg/dL (7-24) Creatinine 0.69 mg/dL (0.60-1.00) BUN/Creat Ratio 15.9 RATIO (10.0-20.0) Glucose 114 mg/dL High (70-99) Calcium 9.3 mg/dL (8.4-10.2) GFR >60 ml/min/1.73m2 (>59) GFR ( Amer) >60 ml/min/1.73m2 (>59) GFR Interpretation <SEE NOTE> 61 Hemoglobin A1c 08/17/2015 [facility] Hemoglobin A1c @ 6.0 % (4.0-6.0) Est Average Glucose 126 mg/dL 62 Lipid 08/17/2015 [facility] Cholesterol @ 133 mg/dL (0-200) Triglyceride @ 124 mg/dL (30-200) HDL Cholesterol @ 67 mg/dL (>40) 63 Chol/HDL Ratio 2.0 RATIO 64 LDL Chol (Calc) 41 mg/dL (<130) 65 Hemoglobin A1c 05/12/2015 [facility] Hemoglobin A1c @ 6.6 % High (4.0- 6.0) Est Average Glucose 143 mg/dL 66 Basic Metabolic Panel 05/12/2015 [facility] Sodium 144 mmol/L (136-145 ) Potassium 4.5 mmol/L (3.6-5.2) Chloride 104 mmol/L (100-108) Co2 28 mmol/L (22-31) Anion Gap 12 mmol/L (7-16) Urea Nitrogen 9 mg/dL (7-24) Creatinine 0.6 mg/dL (0.6-1.0) BUN/Creat Ratio 15.0 RATIO (10.0-20.0) Glucose 116 mg/dL High (70-99) 67 Calcium 9.1 mg/dL (8.4-10.2) GFR >90 ml/min/1.73m2 (>59) GFR ( Amer) >90 ml/min/1.73m2 (>59) GFR Interpretation <SEE NOTE> 68 CMP 02/10/2015 [facility] Sodium 145 mmol/L (136-145) Potassium 5.0 mmol/L (3.6-5.2) Chloride 107 mmol/L (100-108) Co2 28 mmol/L (22-31) Anion Gap 10 mmol/L (7-16) Urea Nitrogen 16 mg/dL (7-24) Creatinine 0.9 mg/dL (0.6-1.0) BUN/Creat Ratio 17.8 RATIO (10.0-20.0) Glucose 113 mg/dL High (70-99) 69 Calcium 9.3 mg/dL (8.4-10.2) Total Protein 6.8 g/dL (6.4-8.2) Albumin 3.5 g/dL (3.5-4.6) Globulin 3.3 g/dL (2.7-4.3) Alb/Glob Ratio 1.1 RATIO Alkaline Phosphatase 117 U/L (45-117) Bilirubin,Total 1.0 mg/dL (0.0-1.0) Ast (Sgot) 36 U/L (11-39) Alt (SGPT) 50 U/L (12-78) GFR 68 ml/min/1.73m2 (>59) GFR ( Amer) 82 ml/min/1.73m2 (>59) GFR Interpretation <SEE NOTE> 70 CBC With Diff 02/10/2015 [facility] WBC 11.4 10*3/uL High (4.1-11.0) RBC 5.00 10*6/uL (4.00-5.40) HGB 15.1 g/dL (12.0-16.0) HCT 45.9 % (36.0-47.0) MCV 91.9 fL (80.0-95.0) MCH 30.3 pg (27.0-32.0) MCHC 33.0 g/dL (32.0-36.0) RDW 14.2 % (10.5-14.5) PLT 316 10*3/uL (150-450) MPV 8.2 fL (7.1-10.7) Neut % 46.0 % (35.0-75.0) Lymph % 40.6 % (16.0-52.0) [place] % 6.8 % (0.0-8.0) Eos % 5.9 % High (0.0-5.0) Baso % 0.7 % (0.0-4.0) Neut # 5.2 10*3/uL (1.8-7.7) Lymph # 4.6 10*3/uL (1.2-4.8) [place] # 0.8 10*3/uL (0.0-0.8) Eos # 0.7 10*3/uL High (0.0-0.5) Baso # 0.1 10*3/uL (0.0-0.2) Laboratory 02/10/2015 [facility] TSH,Ultrasensitive @ 3.620 (0.360- 4.170) test finding mIU/L Lipid 02/10/2015 [facility] Cholesterol @ 138 mg/dL (0-200) Triglyceride @ 146 mg/dL (30-200) 71 HDL Cholesterol @ 53 mg/dL (>40) 72 Chol/HDL Ratio 2.6 RATIO 73 LDL Chol (Calc) 56 mg/dL (<130) 74 Laboratory 12/18/2013 [facility] TSH,Ultrasensitive @ 1.580 (0.360- 4.170) test finding mIU/L Lipid 12/18/2013 [facility] Cholesterol @ 136 mg/dL (0-200) Triglyceride @ 127 mg/dL (30-200) 75 HDL Cholesterol @ 40 mg/dL Low (>40) 76 Chol/HDL Ratio 3.4 RATIO 77 LDL Chol (Calc) 71 mg/dL (<130) 78 CMP 12/18/2013 [facility] Sodium 145 mmol/L (136-145) Potassium 4.5 mmol/L (3.6-5.2) Chloride 111 mmol/L High (100-108) Co2 27 mmol/L (22-31) Anion Gap 7 mmol/L (7-16) Urea Nitrogen 12 mg/dL (7-24) Creatinine 0.7 mg/dL (0.6-1.0) BUN/Creat Ratio 17.1 RATIO (10.0-20.0) Glucose 107 mg/dL High (70-99) 79 Calcium 9.1 mg/dL (8.4-10.2) Total Protein 7.0 g/dL (6.4-8.2) Albumin 3.6 g/dL (3.5-4.6) Globulin 3.4 g/dL (2.7-4.3) Alb/Glob Ratio 1.1 RATIO Alkaline Phosphatase 117 U/L (50-136) Bilirubin,Total 0.6 mg/dL (0.0-1.0) Ast (Sgot) 30 U/L (11-39) Alt (SGPT) 39 U/L (12-78) GFR >90 ML/MIN/1.73M2 (>59) GFR ( Amer) >90 ML/MIN/1.73M2 (>59) GFR Interpretation <SEE NOTE> 80 CBC With Diff 12/18/2013 [facility] WBC 9.2 K/UL (4.1-11.0) RBC 4.77 M/UL (4.00-5.40) HGB 14.4 g/dL (12.0-16.0) HCT 43.1 % (36.0-47.0) MCV 90.4 FL (80.0-95.0) MCH 30.2 pg (27.0-32.0) MCHC 33.4 g/dL (32.0-36.0) RDW 14.4 % (10.5-14.5) PLT 293 K/UL (150-400) MPV 8.1 FL (7.1-10.7) Neut % 45.3 % (35.0-75.0) Lymph % 40.9 % (16.0-52.0) [place] % 6.8 % (0-8.0) Eos % 6.2 % High (0-5.0) Baso % 0.8 % (0-4.0) Neut # 4.2 K/UL (1.8-7.7) Lymph # 3.8 K/UL (1.2-4.8) [place] # 0.6 K/UL (0-0.8) Eos # 0.6 K/UL High (0-0.5) Baso # 0.1 K/UL (0-0.2) Laboratory 09/19/2013 [facility] TSH,Ultrasensitive @ 1.060 (0.360- 4.170) test finding mIU/L Basic 07/16/2013 [facility] Sodium 144 (136-145) Metabolic mmol/L Panel Potassium 4.9 mmol/L (3.6-5.2) Chloride 110 mmol/L High (100-108) Co2 26 mmol/L (22-31) Anion Gap 8 mmol/L (7-16) Urea Nitrogen 15 mg/dL (7-24) Creatinine 0.9 mg/dL (0.6-1.0) BUN/Creat Ratio 16.7 RATIO (10.0-20.0) Glucose 96 mg/dL (70-99) 81 Calcium 9.2 mg/dL (8.4-10.2) GFR 69 ML/MIN/1.73M2 (>59) GFR ( Amer) 83 ML/MIN/1.73M2 (>59) GFR Interpretation <SEE NOTE> 82 Laboratory 07/16/2013 [facility] TSH,Ultrasensitive @ 7.550 High (0.360 -4.170) test finding mIU/L CMP 01/16/2013 [facility] Sodium 144 (136-145) mmol/L Potassium 4.3 mmol/L (3.6-5.2) Chloride 108 mmol/L (100-108) Co2 27 mmol/L (22-31) Anion Gap 9 mmol/L (7-16) Urea Nitrogen 10 mg/dL (7-24) Creatinine 0.7 mg/dL (0.6-1.0) BUN/Creat Ratio 14.3 RATIO (10.0-20.0) Glucose 97 mg/dL (70-99) 83 Calcium 9.2 mg/dL (8.4-10.2) Total Protein 7.3 g/dL (6.4-8.2) Albumin 3.7 g/dL (3.5-4.6) Globulin 3.6 g/dL (2.7-4.3) Alb/Glob Ratio 1.0 RATIO Alkaline Phosphatase 122 U/L (50-136) Bilirubin,Total 0.8 mg/dL (0.0-1.0) Ast (Sgot) 16 U/L (11-39) Alt (SGPT) 23 U/L Low (25-69) GFR >90 ML/MIN/1.73M2 (>59) GFR ( Amer) >90 ML/MIN/1.73M2 (>59) GFR Interpretation <SEE NOTE> 84 Lipid 01/16/2013 [facility] Cholesterol @ 157 mg/dL (0-200) Triglyceride @ 135 mg/dL (30-200) 85 HDL Cholesterol @ 48 mg/dL (>40) 86 Chol/HDL Ratio 3.3 RATIO 87 LDL Chol (Calc) 82 mg/dL (<130) 88 Hemoglobin A1c 01/16/2013 [facility] Hemoglobin A1c @ 5.6 % (4.0-6.0) Est Average Glucose 114 mg/dL 89 Protime 12/28/2011 [facility] PT 21.1 SEC High (9.3-11.5) Inr 2.04 90 PT (On Therapy) 12/19/2011 [facility] PT (On Therapy) 24.6 seconds High 11.7 -14.5 91 Inr 2.3 92 PT (On Therapy) 12/14/2011 [facility] PT (On Therapy) 23.4 seconds High 11.7 -14.5 93 Inr 2.1 94 PT (On Therapy) 11/21/2011 [facility] PT (On Therapy) 32.8 seconds High 11.7 -14.5 95 Inr 3.3 96 PT (On Therapy) 10/24/2011 [facility] PT (On Therapy) 23.7 seconds High 11.7 -14.5 97 Inr 2.1 98 CMP Panel (13 Test) 05/16/2010 [facility] Albumin 4.0 Alt-SGPT 30 Calcium 9.8 Carbon Dioxide 23.0 Chloride 109 Creatinine 0.80 Glucose Serum 91 Alkaline Phosphatase 107 Potassium 4.0 Protein Total 6.6 Sodium 140 Ast-Sgot 37 BUN - Urea Nitrogen 14 Lipid Panel 05/16/2010 [facility] Cholesterol Total 142 Cholesterol/HDL Ratio 4.44 High Density Lipoprotein 32 Low LDL Low Density Lipoprotein 84 Triglycerides 130 Laboratory test 05/16/2010 [facility] TSH Thyroid 2.30 finding Stimulating Horm Hemoglobin A1c 5.9 PT (On Therapy) 02/06/2008 [facility] PT (On Therapy) 14.6 seconds High 11.7 -14.5 99 Inr 1.2 100 Laboratory test finding 02/06/2008 [facility] PTT 29.5 seconds 23.7-35.5 Comprehensive Metabolic 02/06/2008 [facility] Glucose 151 mg/dL High 70-100 BUN 17 mg/dL 4-18 Creatinine, Serum 1.0 mg/dL 0.5-1.2 Sodium 141 mmol/L 136-146 Potassium 4.1 mmol/L 3.5-5.3 Chloride 105 mmol/L 98-110 Carbon Dioxide 24 mmol/L 20-32 Albumin 4.3 g/dL 3.5-4.7 Protein, Total 7.0 g/dL 6.4-8.2 Calcium 9.2 mg/dL 8.4-10.4 Alkaline Phosphatase 104 U/L 10-118 Sgot (Ast) 34 U/L 3-40 SGPT (Alt) 39 U/L 7-50 Bilirubin, Total 0.60 mg/dL 0.30-1.20 Hemogram 02/06/2008 [facility] WBC 12.8 x103 High 4.3-10.9 RBC 4.65 x106 3.80-5.30 Hemoglobin 14.3 g/dL 11.8-15.8 Hematocrit 44.2 % 35.0-47.0 MCV 95.1 fl 82.0-98.0 MCH 30.8 pg 27.5-33.5 MCHC 32.4 g/dL 32.0-36.0 RDW 13.4 % 11.5-14.5 Platelet Count 392 x103 130-400 MPV 10.1 fl 6.5-10.5 Laboratory test finding 02/06/2008 [facility] GFR (Calculated) >60 101 1 Performed using el?ta immunoassay. Care must be taken when interpreting HbA1c results in patients with a hemoglobin variant or decreased erythrocyte lifespan. Values 5.7 - 6.4% suggest prediabetes. Values >=6.5% are diagnostic for diabetes. REFERENCE: DIABETES CARE 2018: 41([id number]). 2 NORMAL KIDNEY FUNCTION OR MILD DISEASE - GFR >OR=60 CHRONIC KIDNEY DISEASE - GFR 15 - 59 RENAL FAILURE - GFR <15 Est. GFR calculation based on the MDRD study equation, which assumes a steady state for creatinine. Est. GFR should not be used for medication dosing. 3 SUGGESTED THERAPEUTIC RANGES USING INR FOR STABILIZED ANTICOAGULATED PATIENTS: STANDARD DOSE THERAPY INR 2.0-3.0 DVT, PE, PREVENT DVT OR EMBOLISM HIGH DOSE THERAPY INR 2.5-3.5 PREVENT EMBOLISM FROM MECHANICAL HEART VALVE 4 SPECIMEN DESCRIPTION URINE, COLLECTION METHOD NOT SPECIFIED CULTURE RESULTS >100,000 CFU/ML ESCHERICHIA COLI REPORT STATUS FINAL 02/07/2019 ORGANISM ESCHERICHIA COLI METHOD NADIA AMIKACIN <=2 SUSCEPTIBLE AMOXICILLIN/CLAVULANIC AC 16/8 INTERMEDIATE AMPICILLIN >=32 RESISTANT ISOLATES SUSCEPTIBLE TO AMPICILLIN ARE ALSO SUSCEPTIBLE TO AMOXICILLIN. CEFAZOLIN <=4 SUSCEPTIBLE FOR UNCOMPLICATED UTI'S,CEFAZOLIN NADIA RESULTS LESS THAN OR EQUAL TO 16 MCG/ML PREDICT SUSCEPTIBILITY OF THE FOLLOWING ORAL CEPHALOSPORINS:CEFACLOR,CEFDINIR, CEFPODOXIME,CEFPROZIL,CEFUROXIME AND CEPHALEXIN. IMPORTANT NOTE FOR COMPLICATED INFECTIONS SUCH UROSEPSIS CEFAZOLIN SHOULD HAVE A NADIA OF LESS THAN OR EQUAL TO 2 TO BE CONSIDERED SUSCEPTIBLE. CONTACT MICROBIOLOGY FOR FURTHER TESTING IF WARRANTED. CEFEPIME <=1 SUSCEPTIBLE CEFOXITIN <=4 SUSCEPTIBLE CEFTAZIDIME <=1 SUSCEPTIBLE CEFTRIAXONE <=1 SUSCEPTIBLE CIPROFLOXACIN <=0.25 SUSCEPTIBLE GENTAMICIN <=1 SUSCEPTIBLE LEVOFLOXACIN <=0.12 SUSCEPTIBLE MEROPENEM <=0.25 SUSCEPTIBLE NITROFURANTOIN <=16 SUSCEPTIBLE PIPERACILLIN/TAZOBACTAM <=4 SUSCEPTIBLE TETRACYCLINE <=1 SUSCEPTIBLE TOBRAMYCIN <=1 SUSCEPTIBLE TRIMETH/SULFA <=1/ SUSCEPTIBLE ERTAPENEM <=0.5 SUSCEPTIBLE 5 FASTING 6 NORMAL KIDNEY FUNCTION OR MILD DISEASE - GFR >OR=60 CHRONIC KIDNEY DISEASE - GFR 15 - 59 RENAL FAILURE - GFR <15 Est. GFR calculation based on the MDRD study equation, which assumes a steady state for creatinine. Est. GFR should not be used for medication dosing. 7 FASTING 8 PER NCEP ATP III GUIDELINES: RESULTS LOWER THAN 40 MG/DL ARE SUGGESTIVE OF INCREASED RISK FOR CORONARY ARTERY DISEASE. RESULTS > OR=TO 60 MG/DL ARE CONSIDERED A NEGATIVE RISK FACTOR. 9 INTERPRETATION OF CHOL-HDL RATIO CHD RISK FEMALE MALE VERY HIGH >8.3 >14.3 HIGH 5.6- 8.3 6.7- 14.3 AVERAGE 3.7- 5.6 4.0- 6.7 BELOW AVERAGE 2.5- 3.7 2.7- 4.0 PROTECTED <2.5 <2.7 10 PER NCEP ATP III GUIDELINES: OPTIMAL < 100 NEAR OPTIMAL 100 - 129 BORDERLINE HIGH 130 - 159 HIGH 160 - 189 VERY HIGH > 189 11 Performed using Siemens [place] immunoassay. Care must be taken when interpreting HbA1c results in patients with a hemoglobin variant or decreased erythrocyte lifespan. Values 5.7 - 6.4% suggest prediabetes. Values >=6.5% are diagnostic for diabetes. REFERENCE: DIABETES CARE 2018: 41(S13-S27). 12 Performed using Siemens [place] immunoassay. Care must be taken when interpreting HbA1c results in patients with a hemoglobin variant or decreased erythrocyte lifespan. Values 5.7 - 6.4% suggest prediabetes. Values >=6.5% are diagnostic for diabetes. REFERENCE: DIABETES CARE 2018: 41(S13-S27). 13 FASTING 14 NORMAL KIDNEY FUNCTION OR MILD DISEASE - GFR >OR=60 CHRONIC KIDNEY DISEASE - GFR 15 - 59 RENAL FAILURE - GFR <15 Est. GFR calculation based on the MDRD study equation, which assumes a steady state for creatinine. Est. GFR should not be used for medication dosing. 15 FASTING 16 NORMAL KIDNEY FUNCTION OR MILD DISEASE - GFR >OR=60 CHRONIC KIDNEY DISEASE - GFR 15 - 59 RENAL FAILURE - GFR <15 Est. GFR calculation based on the MDRD study equation, which assumes a steady state for creatinine. Est. GFR should not be used for medication dosing. 17 Performed using Siemens [place] immunoassay. Care must be taken when interpreting HbA1c results in patients with a hemoglobin variant or decreased erythrocyte lifespan. Values 5.7 - 6.4% suggest prediabetes. Values >=6.5% are diagnostic for diabetes. REFERENCE: DIABETES CARE 2018: 41(S13-S27). 18 FASTING 19 PER NCEP ATP III GUIDELINES: RESULTS LOWER THAN 40 MG/DL ARE SUGGESTIVE OF INCREASED RISK FOR CORONARY ARTERY DISEASE. RESULTS > OR=TO 60 MG/DL ARE CONSIDERED A NEGATIVE RISK FACTOR. 20 INTERPRETATION OF CHOL-HDL RATIO CHD RISK FEMALE MALE VERY HIGH >8.3 >14.3 HIGH 5.6- 8.3 6.7- 14.3 AVERAGE 3.7- 5.6 4.0- 6.7 BELOW AVERAGE 2.5- 3.7 2.7- 4.0 PROTECTED <2.5 <2.7 21 PER NCEP ATP III GUIDELINES: OPTIMAL < 100 NEAR OPTIMAL 100 - 129 BORDERLINE HIGH 130 - 159 HIGH 160 - 189 VERY HIGH > 189 22 FASTING 23 NORMAL KIDNEY FUNCTION OR MILD DISEASE - GFR >OR=60 CHRONIC KIDNEY DISEASE - GFR 15 - 59 RENAL FAILURE - GFR <15 Est. GFR calculation based on the MDRD study equation, which assumes a steady state for creatinine. Est. GFR should not be used for medication dosing. 24 HEMOGLOBIN A1c INTERPRETATION: 4.0-6.0% GOOD GLYCEMIC CONTROL 6.1-6.5% AT RISK FOR HYPERGLYCEMIA >6.5% DIABETIC/ POOR GLYCEMIC CONTROL REFERENCE: DIABETES CARE 32(7), 2009 IF A1c RESULT IS INCONSISTENT WITH CLINICAL ESTIMATES OF GLYCEMIC CONTROL, AN INTERFERING Hb VARIANT SHOULD BE CONSIDERED. 25 SPECIMEN DESCRIPTION URINE, COLLECTION METHOD NOT SPECIFIED CULTURE RESULTS >100,000 CFU/ML ESCHERICHIA COLI REPORT STATUS FINAL 12/27/2017 ORGANISM ESCHERICHIA COLI METHOD NADIA AMIKACIN <=2 SUSCEPTIBLE AMOXICILLIN/CLAVULANIC AC 4/2 SUSCEPTIBLE AMPICILLIN >=32 RESISTANT ISOLATES SUSCEPTIBLE TO AMPICILLIN ARE ALSO SUSCEPTIBLE TO AMOXICILLIN. CEFAZOLIN <=4 SUSCEPTIBLE FOR UNCOMPLICATED UTI'S,CEFAZOLIN NADIA RESULTS LESS THAN OR EQUAL TO 16 MCG/ML PREDICT SUSCEPTIBILITY OF THE FOLLOWING ORAL CEPHALOSPORINS:CEFACLOR,CEFDINIR, CEFPODOXIME,CEFPROZIL,CEFUROXIME AND CEPHALEXIN. IMPORTANT NOTE FOR COMPLICATED INFECTIONS SUCH UROSEPSIS CEFAZOLIN SHOULD HAVE A NADIA OF LESS THAN OR EQUAL TO 2 TO BE CONSIDERED SUSCEPTIBLE. CONTACT MICROBIOLOGY FOR FURTHER TESTING IF WARRANTED. CEFEPIME <=1 SUSCEPTIBLE CEFOXITIN <=4 SUSCEPTIBLE CEFTAZIDIME <=1 SUSCEPTIBLE CEFTRIAXONE <=1 SUSCEPTIBLE CIPROFLOXACIN 1 SUSCEPTIBLE GENTAMICIN <=1 SUSCEPTIBLE LEVOFLOXACIN 1 SUSCEPTIBLE NITROFURANTOIN <=16 SUSCEPTIBLE PIPERACILLIN/TAZOBACTAM <=4 SUSCEPTIBLE TETRACYCLINE >=16 RESISTANT TOBRAMYCIN <=1 SUSCEPTIBLE TRIMETH/SULFA >=16/304 RESISTANT ERTAPENEM <=0.5 SUSCEPTIBLE 26 FASTING 27 NORMAL KIDNEY FUNCTION OR MILD DISEASE - GFR >OR=60 CHRONIC KIDNEY DISEASE - GFR 15 - 59 RENAL FAILURE - GFR <15 Est. GFR calculation based on the MDRD study equation, which assumes a steady state for creatinine. Est. GFR should not be used for medication dosing. 28 HEMOGLOBIN A1c INTERPRETATION: 4.0-6.0% GOOD GLYCEMIC CONTROL 6.1-6.5% AT RISK FOR HYPERGLYCEMIA >6.5% DIABETIC/ POOR GLYCEMIC CONTROL REFERENCE: DIABETES CARE 32(7), 2009 IF A1c RESULT IS INCONSISTENT WITH CLINICAL ESTIMATES OF GLYCEMIC CONTROL, AN INTERFERING Hb VARIANT SHOULD BE CONSIDERED. 29 FASTING 30 NORMAL KIDNEY FUNCTION OR MILD DISEASE - GFR >OR=60 CHRONIC KIDNEY DISEASE - GFR 15 - 59 RENAL FAILURE - GFR <15 Est. GFR calculation based on the MDRD study equation, which assumes a steady state for creatinine. Est. GFR should not be used for medication dosing. 31 HEMOGLOBIN A1c INTERPRETATION: 4.0-6.0% GOOD GLYCEMIC CONTROL 6.1-6.5% AT RISK FOR HYPERGLYCEMIA >6.5% DIABETIC/ POOR GLYCEMIC CONTROL REFERENCE: DIABETES CARE 32(7), 2008 IF A1c RESULT IS INCONSISTENT WITH CLINICAL ESTIMATES OF GLYCEMIC CONTROL, AN INTERFERING Hb VARIANT SHOULD BE CONSIDERED. 32 FASTING 33 PER NCEP ATP III GUIDELINES: RESULTS LOWER THAN 40 MG/DL ARE SUGGESTIVE OF INCREASED RISK FOR CORONARY ARTERY DISEASE. RESULTS > OR=TO 60 MG/DL ARE CONSIDERED A NEGATIVE RISK FACTOR. 34 INTERPRETATION OF CHOL-HDL RATIO CHD RISK FEMALE MALE VERY HIGH >8.3 >14.3 HIGH 5.6- 8.3 6.7- 14.3 AVERAGE 3.7- 5.6 4.0- 6.7 BELOW AVERAGE 2.5- 3.7 2.7- 4.0 PROTECTED <2.5 <2.7 35 PER NCEP ATP III GUIDELINES: OPTIMAL < 100 NEAR OPTIMAL 100 - 129 BORDERLINE HIGH 130 - 159 HIGH 160 - 189 VERY HIGH > 189 36 NOT INFECTED WITH HCV, UNLESS RECENT INFECTION IS SUSPECTED OR OTHER EVIDENCE EXISTS TO INDICATE HCV INFECTION. 37 FASTING 38 NORMAL KIDNEY FUNCTION OR MILD DISEASE - GFR >OR=60 CHRONIC KIDNEY DISEASE - GFR 15 - 59 RENAL FAILURE - GFR <15 Est. GFR calculation based on the MDRD study equation, which assumes a steady state for creatinine. Est. GFR should not be used for medication dosing. 39 HEMOGLOBIN A1c INTERPRETATION: 4.0-6.0% GOOD GLYCEMIC CONTROL 6.1-6.5% AT RISK FOR HYPERGLYCEMIA >6.5% DIABETIC/ POOR GLYCEMIC CONTROL REFERENCE: DIABETES CARE 32(7), 2008 IF A1c RESULT IS INCONSISTENT WITH CLINICAL ESTIMATES OF GLYCEMIC CONTROL, AN INTERFERING Hb VARIANT SHOULD BE CONSIDERED. 40 FASTING 41 PER NCEP ATP III GUIDELINES: RESULTS LOWER THAN 40 MG/DL ARE SUGGESTIVE OF INCREASED RISK FOR CORONARY ARTERY DISEASE. RESULTS > OR=TO 60 MG/DL ARE CONSIDERED A NEGATIVE RISK FACTOR. 42 INTERPRETATION OF CHOL-HDL RATIO CHD RISK FEMALE MALE VERY HIGH >8.3 >14.3 HIGH 5.6- 8.3 6.7- 14.3 AVERAGE 3.7- 5.6 4.0- 6.7 BELOW AVERAGE 2.5- 3.7 2.7- 4.0 PROTECTED <2.5 <2.7 43 PER NCEP ATP III GUIDELINES: OPTIMAL < 100 NEAR OPTIMAL 100 - 129 BORDERLINE HIGH 130 - 159 HIGH 160 - 189 VERY HIGH > 189 44 HEMOGLOBIN A1c INTERPRETATION: 4.0-6.0% GOOD GLYCEMIC CONTROL 6.1-6.5% AT RISK FOR HYPERGLYCEMIA >6.5% DIABETIC/ POOR GLYCEMIC CONTROL REFERENCE: DIABETES CARE 32(7)2008 IF A1c RESULT IS INCONSISTENT WITH CLINICAL ESTIMATES OF GLYCEMIC CONTROL, AN INTERFERING Hb VARIANT SHOULD BE CONSIDERED. 45 FASTING 46 NORMAL KIDNEY FUNCTION OR MILD DISEASE - GFR >OR=60 CHRONIC KIDNEY DISEASE - GFR 15 - 59 RENAL FAILURE - GFR <15 Est. GFR calculation based on the MDRD study equation, which assumes a steady state for creatinine. Est. GFR should not be used for medication dosing. 47 FASTING 48 NORMAL KIDNEY FUNCTION OR MILD DISEASE - GFR >OR=60 CHRONIC KIDNEY DISEASE - GFR 15 - 59 RENAL FAILURE - GFR <15 Est. GFR calculation based on the MDRD study equation, which assumes a steady state for creatinine. Est. GFR should not be used for medication dosing. 49 HEMOGLOBIN A1c INTERPRETATION: 4.0-6.0% GOOD GLYCEMIC CONTROL 6.1-6.5% AT RISK FOR HYPERGLYCEMIA >6.5% DIABETIC/ POOR GLYCEMIC CONTROL REFERENCE: DIABETES CARE 32(7), 2009 IF A1c RESULT IS INCONSISTENT WITH CLINICAL ESTIMATES OF GLYCEMIC CONTROL, AN INTERFERING Hb VARIANT SHOULD BE CONSIDERED. 50 FASTING 51 PER NCEP ATP III GUIDELINES: RESULTS LOWER THAN 40 MG/DL ARE SUGGESTIVE OF INCREASED RISK FOR CORONARY ARTERY DISEASE. RESULTS > OR=TO 60 MG/DL ARE CONSIDERED A NEGATIVE RISK FACTOR. 52 INTERPRETATION OF CHOL-HDL RATIO CHD RISK FEMALE MALE VERY HIGH >8.3 >14.3 HIGH 5.6- 8.3 6.7- 14.3 AVERAGE 3.7- 5.6 4.0- 6.7 BELOW AVERAGE 2.5- 3.7 2.7- 4.0 PROTECTED <2.5 <2.7 53 PER NCEP ATP III GUIDELINES: OPTIMAL < 100 NEAR OPTIMAL 100 - 129 BORDERLINE HIGH 130 - 159 HIGH 160 - 189 VERY HIGH > 189 54 FASTING 55 NORMAL KIDNEY FUNCTION OR MILD DISEASE - GFR >OR=60 CHRONIC KIDNEY DISEASE - GFR 15 - 59 RENAL FAILURE - GFR <15 Est. GFR calculation based on the MDRD study equation, which assumes a steady state for creatinine. Est. GFR should not be used for medication dosing. 56 HEMOGLOBIN A1c INTERPRETATION: 4.0-6.0% GOOD GLYCEMIC CONTROL 6.1-6.5% AT RISK FOR HYPERGLYCEMIA >6.5% DIABETIC/ POOR GLYCEMIC CONTROL REFERENCE: DIABETES CARE 327), 2008 IF A1c RESULT IS INCONSISTENT WITH CLINICAL ESTIMATES OF GLYCEMIC CONTROL, AN INTERFERING Hb VARIANT SHOULD BE CONSIDERED. 57 LABORATORY [facility]. [address] [place] [address] GYNECOLOGIC CYTOLOGY REPORT Accession Number: [id number] Source of Specimen(s): A: Thin Prep Cervical Pap Smear - One Vial Clinical Diagnosis and History: Date of Last Menstrual Period: several yrs ago Menstrual History: Post-menopausal Treatment History: Hysterectomy Other Clinical Conditions: REFLEX TO HPV ASSAY IF RESULTS OF THIS PAP ARE ASCUS Specimen Adequacy Satisfactory for evaluation Presence of endocervical/transformation zone cannot be assessed due to atrophic changes. It may be difficult to distinguish squamous metaplastic cells from parabasal type cells in specimens showing atrophy due to a variety of hormonal changes including menopause, post changes and progestational agents. General Categorization Negative for intraepithelial lesion or malignancy Interpretation NEGATIVE FOR INTRAEPITHELIAL LESION OR MALIGNANCY Reported: 02/23/2016 Electronically Signed Out By Mee BOBBY(ASCP) Frame Fixer: Salima BOBBY(ASCP) [facility] QC Reviewed: Y 58 FASTING 59 NORMAL KIDNEY FUNCTION OR MILD DISEASE - GFR >OR=60 CHRONIC KIDNEY DISEASE - GFR 15 - 59 RENAL FAILURE - GFR <15 Est. GFR calculation based on the MDRD study equation, which assumes a steady state for creatinine. Est. GFR should not be used for medication dosing. 60 HEMOGLOBIN A1c INTERPRETATION: 4.0-6.0% GOOD GLYCEMIC CONTROL 6.1-6.5% AT RISK FOR HYPERGLYCEMIA >6.5% DIABETIC/ POOR GLYCEMIC CONTROL REFERENCE: DIABETES CARE 32(7), 2009 IF A1c RESULT IS INCONSISTENT WITH CLINICAL ESTIMATES OF GLYCEMIC CONTROL, AN INTERFERING Hb VARIANT SHOULD BE CONSIDERED. 61 NORMAL KIDNEY FUNCTION OR MILD DISEASE - GFR >OR=60 CHRONIC KIDNEY DISEASE - GFR 15 - 59 RENAL FAILURE - GFR <15 Est. GFR calculation based on the MDRD study equation, which assumes a steady state for creatinine. Est. GFR should not 62 HEMOGLOBIN A1c INTERPRETATION: 4.0-6.0% GOOD GLYCEMIC CONTROL 6.1-6.5% AT RISK FOR HYPERGLYCEMIA >6.5% DIABETIC/ POOR GLYCEMIC CONTROL REFERENCE: DIABETES CARE 32(7), 2008 IF A1c RESULT IS INCONSISTENT WITH CLINICAL ESTIMATES OF GLYCEMIC CONTROL, AN INTERFERING Hb VARIANT SHOULD BE CONSIDERED. 63 PER NCEP ATP III GUIDELINES: RESULTS LOWER THAN 40 MG/DL ARE SUGGESTIVE OF INCREASED RISK FOR CORONARY ARTERY DISEASE. RESULTS > OR=TO 60 MG/DL ARE 64 INTERPRETATION OF CHOL-HDL RATIO CHD RISK FEMALE MALE VERY HIGH >8.3 >14.3 HIGH 5.6- 8.3 6.7- 14.3 AVERAGE 3.7- 5.6 4.0- 6.7 BELOW AVERAGE 2.5- 3.7 2.7- 4.0 65 PER NCEP ATP III GUIDELINES: OPTIMAL < 100 NEAR OPTIMAL 100 - 129 BORDERLINE HIGH 130 - 159 HIGH 160 - 189 VERY HIGH > 189 66 HEMOGLOBIN A1c INTERPRETATION: 4.0-6.0% GOOD GLYCEMIC CONTROL 6.1-6.5% AT RISK FOR HYPERGLYCEMIA >6.5% DIABETIC/ POOR GLYCEMIC CONTROL REFERENCE: DIABETES CARE 32(7)2008 IF A1c RESULT IS INCONSISTENT WITH CLINICAL ESTIMATES OF GLYCEMIC CONTROL, AN INTERFERING Hb VARIANT SHOULD BE CONSIDERED. 67 FASTING 68 NORMAL KIDNEY FUNCTION OR MILD DISEASE - GFR >OR=60 CHRONIC KIDNEY DISEASE - GFR 15 - 59 RENAL FAILURE - GFR <15 Est. GFR calculation based on the MDRD study equation, which assumes a steady state for creatinine. Est. GFR should not be used for medication dosing. 69 FASTING 70 NORMAL KIDNEY FUNCTION OR MILD DISEASE - GFR >OR=60 CHRONIC KIDNEY DISEASE - GFR 15 - 59 RENAL FAILURE - GFR <15 Est. GFR calculation based on the MDRD study equation, which assumes a steady state for creatinine. Est. GFR should not be used for medication dosing. 71 FASTING 72 PER NCEP ATP III GUIDELINES: RESULTS LOWER THAN 40 MG/DL ARE SUGGESTIVE OF INCREASED RISK FOR CORONARY ARTERY DISEASE. RESULTS > OR=TO 60 MG/DL ARE CONSIDERED A NEGATIVE RISK FACTOR. 73 INTERPRETATION OF CHOL-HDL RATIO CHD RISK FEMALE MALE VERY HIGH >8.3 >14.3 HIGH 5.6- 8.3 6.7- 14.3 AVERAGE 3.7- 5.6 4.0- 6.7 BELOW AVERAGE 2.5- 3.7 2.7- 4.0 PROTECTED <2.5 <2.7 74 PER NCEP ATP III GUIDELINES: OPTIMAL < 100 NEAR OPTIMAL 100 - 129 BORDERLINE HIGH 130 - 159 HIGH 160 - 189 VERY HIGH > 189 75 FASTING 76 PER NCEP ATP III GUIDELINES: RESULTS LOWER THAN 40 MG/DL ARE SUGGESTIVE OF INCREASED RISK FOR CORONARY ARTERY DISEASE. RESULTS > OR=TO 60 MG/DL ARE CONSIDERED A NEGATIVE RISK FACTOR. 77 INTERPRETATION OF CHOL-HDL RATIO CHD RISK FEMALE MALE VERY HIGH >8.3 >14.3 HIGH 5.6- 8.3 6.7- 14.3 AVERAGE 3.7- 5.6 4.0- 6.7 BELOW AVERAGE 2.5- 3.7 2.7- 4.0 PROTECTED <2.5 <2.7 78 PER NCEP ATP III GUIDELINES: OPTIMAL < 100 NEAR OPTIMAL 100 - 129 BORDERLINE HIGH 130 - 159 HIGH 160 - 189 VERY HIGH > 189 79 FASTING 80 NORMAL KIDNEY FUNCTION OR MILD DISEASE - GFR >OR=60 CHRONIC KIDNEY DISEASE - GFR 15 - 59 RENAL FAILURE - GFR <15 Est. GFR calculation based on the MDRD study equation, which assumes a steady state for creatinine. Est. GFR should not be used for medication dosing. 81 FASTING 82 NORMAL KIDNEY FUNCTION OR MILD DISEASE - GFR >OR=60 CHRONIC KIDNEY DISEASE - GFR 15 - 59 RENAL FAILURE - GFR <15 Est. GFR calculation based on the MDRD study equation, which assumes a steady state for creatinine. Est. GFR should not be used for medication dosing. 83 FASTING 84 NORMAL KIDNEY FUNCTION OR MILD DISEASE - GFR >OR=60 CHRONIC KIDNEY DISEASE - GFR 15 - 59 RENAL FAILURE - GFR <15 Est. GFR calculation based on the MDRD study equation, which assumes a steady state for creatinine. Est. GFR should not be used for medication dosing. 85 FASTING 86 PER NCEP ATP III GUIDELINES: RESULTS LOWER THAN 40 MG/DL ARE SUGGESTIVE OF INCREASED RISK FOR CORONARY ARTERY DISEASE. RESULTS > OR=TO 60 MG/DL ARE CONSIDERED A NEGATIVE RISK FACTOR. 87 INTERPRETATION OF CHOL-HDL RATIO CHD RISK FEMALE MALE VERY HIGH >8.3 >14.3 HIGH 5.6- 8.3 6.7- 14.3 AVERAGE 3.7- 5.6 4.0- 6.7 BELOW AVERAGE 2.5- 3.7 2.7- 4.0 PROTECTED <2.5 <2.7 88 PER NCEP ATP III GUIDELINES: OPTIMAL < 100 NEAR OPTIMAL 100 - 129 BORDERLINE HIGH 130 - 159 HIGH 160 - 189 VERY HIGH > 189 89 HEMOGLOBIN A1c INTERPRETATION: 4.0-6.0% GOOD GLYCEMIC CONTROL 6.1-6.5% AT RISK FOR HYPERGLYCEMIA >6.5% DIABETIC/ POOR GLYCEMIC CONTROL REFERENCE: DIABETES CARE 32(7), 2009 IF A1c RESULT IS INCONSISTENT WITH CLINICAL ESTIMATES OF GLYCEMIC CONTROL, AN INTERFERING Hb VARIANT SHOULD BE CONSIDERED. 90 SUGGESTED THERAPEUTIC RANGES USING INR FOR STABILIZED ANTICOAGULATED PATIENTS: STANDARD DOSE THERAPY INR 2.0-3.0 DVT, PE, PREVENT DVT OR EMBOLISM HIGH DOSE THERAPY INR 2.5-3.5 PREVENT EMBOLISM FROM MECHANICAL HEART VALVE 91 . 92 INTERNATIONAL NORMALIZED RATIO(INR) INDICATIONS INR RANGE PATIENTS NOT ON ANTICOAGULANT THERAPY * DEEP VENOUS THROMBOSIS 2.0-3.0 PULMONARY EMBOLISM 2.0-3.0 ATRIAL FIBRILLATION 2.0-3.0 PROPHYLAXIS: 2.0-3.0 HIGH-RISK SURGERY TISSUE HEART VALVES ATRIAL FIBRILLATION ACUTE MYOCARDIAL INFARCTION VALVULAR HEART DISEASE MECHANICAL PROSTHETIC VALVE 2.5-3.5 * USE OF INR VALUES SHOULD BE LIMITED TO PATIENTS WHO ARE ON STABLE ORAL ANTICOAGULANT THERAPY. AN INR ABOVE 5.0-5.5 APPEARS TO BE ASSOCIATED WITH AN UNACCEPTABLY HIGH RISK OF BLEEDING. 93 . 94 INTERNATIONAL NORMALIZED RATIO(INR) INDICATIONS INR RANGE PATIENTS NOT ON ANTICOAGULANT THERAPY * DEEP VENOUS THROMBOSIS 2.0-3.0 PULMONARY EMBOLISM 2.0-3.0 ATRIAL FIBRILLATION 2.0-3.0 PROPHYLAXIS: 2.0-3.0 HIGH-RISK SURGERY TISSUE HEART VALVES ATRIAL FIBRILLATION ACUTE MYOCARDIAL INFARCTION VALVULAR HEART DISEASE MECHANICAL PROSTHETIC VALVE 2.5-3.5 * USE OF INR VALUES SHOULD BE LIMITED TO PATIENTS WHO ARE ON STABLE ORAL ANTICOAGULANT THERAPY. AN INR ABOVE 5.0-5.5 APPEARS TO BE ASSOCIATED WITH AN UNACCEPTABLY HIGH RISK OF BLEEDING. 95 . 96 INTERNATIONAL NORMALIZED RATIO(INR) INDICATIONS INR RANGE PATIENTS NOT ON ANTICOAGULANT THERAPY * DEEP VENOUS THROMBOSIS 2.0-3.0 PULMONARY EMBOLISM 2.0-3.0 ATRIAL FIBRILLATION 2.0-3.0 PROPHYLAXIS: 2.0-3.0 HIGH-RISK SURGERY TISSUE HEART VALVES ATRIAL FIBRILLATION ACUTE MYOCARDIAL INFARCTION VALVULAR HEART DISEASE MECHANICAL PROSTHETIC VALVE 2.5-3.5 * USE OF INR VALUES SHOULD BE LIMITED TO PATIENTS WHO ARE ON STABLE ORAL ANTICOAGULANT THERAPY. AN INR ABOVE 5.0-5.5 APPEARS TO BE ASSOCIATED WITH AN UNACCEPTABLY HIGH RISK OF BLEEDING. 97 . 98 INTERNATIONAL NORMALIZED RATIO(INR) INDICATIONS INR RANGE PATIENTS NOT ON ANTICOAGULANT THERAPY * DEEP VENOUS THROMBOSIS 2.0-3.0 PULMONARY EMBOLISM 2.0-3.0 ATRIAL FIBRILLATION 2.0-3.0 PROPHYLAXIS: 2.0-3.0 HIGH-RISK SURGERY TISSUE HEART VALVES ATRIAL FIBRILLATION ACUTE MYOCARDIAL INFARCTION VALVULAR HEART DISEASE MECHANICAL PROSTHETIC VALVE 2.5-3.5 * USE OF INR VALUES SHOULD BE LIMITED TO PATIENTS WHO ARE ON STABLE ORAL ANTICOAGULANT THERAPY. AN INR ABOVE 5.0-5.5 APPEARS TO BE ASSOCIATED WITH AN UNACCEPTABLY HIGH RISK OF BLEEDING. 99 . 100 INTERNATIONAL NORMALIZED RATIO(INR) INDICATIONS INR RANGE PATIENTS NOT ON ANTICOAGULANT THERAPY * DEEP VENOUS THROMBOSIS 2.0-3.0 PULMONARY EMBOLISM 2.0-3.0 ATRIAL FIBRILLATION 2.0-3.0 PROPHYLAXIS: 2.0-3.0 HIGH-RISK SURGERY TISSUE HEART VALVES ATRIAL FIBRILLATION ACUTE MYOCARDIAL INFARCTION VALVULAR HEART DISEASE MECHANICAL PROSTHETIC VALVE 2.5-3.5 * USE OF INR VALUES SHOULD BE LIMITED TO PATIENTS WHO ARE ON STABLE ORAL ANTICOAGULANT THERAPY. AN INR ABOVE 5.0-5.5 APPEARS TO BE ASSOCIATED WITH AN UNACCEPTABLY HIGH RISK OF BLEEDING. 101 mL/min/1.73m2 . Normal Function or Mild Renal Disease, if clinically at risk: >or=60 Moderately decreased: 30 - 59 Severely decreased: 15 - 29 Renal Failure: <15 . Please note that the MDRD equation requires an additional adjustment for -Americans (multiply the GFR result by 1.210). . Glomerular Filtration Rate (GFR) is estimated based on the MDRD equation, which assumes a steady state for creatinine ([place] Int Med 139/2 137-149, 2003), as recommended by the National Kidney Disease Education Program in conjunction with the National Institutes of Health and the National Kidney Foundation. . Clinical conditions in which it may be necessary to measure GFR by using clearance methods include extremes of age and body size, severe malnutrition or obesity, diseases of skeletal muscle, paraplegia or quadriplegia, vegetarian diet, rapidly changing kidney function, and calculation of the dose of potentially toxic drugs that are excreted by the kidneys. Procedures Date Code Description Status 02/04/2019 60567 Electrocardiogram Complete Completed 01/29/2018 [id number] Mammogram Completed 06/16/2016 12599 Cryo-2-14 Lesions Completed 02/12/2015 95425 Audiogram/Pure Tone Hearing Test Completed 10/15/2013 [id number] Colonoscopy Completed 06/27/2012 44560 Electrocardiogram Complete Completed 10/15/2011 [id number] Bone Mineral Density Test Completed 02/17/2004 25550 Airway Inhalation Treatment Completed 09/01/2003 29207 Electrocardiogram Complete Completed Encounters Type Date Location Provider Dx Diagnosis Office Visit 03/04/2019 Main Office Bradford Cheney E11.9 Type 2 diabetes 10:00a Aubrey Palma mellitus without complications E66.9 Obesity, unspecified Office Visit 02/04/2019 1:00p Main Office Bradford Cheney M25.512 Pain in left Aubrey Palma shoulder S70.02xA Contusion of left hip, initial encounter E66.9 Obesity, unspecified Z01.818 Encounter for other preprocedural examination Office Visit 12/30/2018 2:20p Main Office Bradford Cheney B02.9 Zoster without Aubrey Palma complications E66.9 Obesity, unspecified Office Visit 12/02/2018 10:00a Main Office Bradford Cheney E11.9 Type 2 diabetes Aubrey Palma mellitus without complications E66.9 Obesity, unspecified Office Visit 10/28/2018 1:30p Main Office Bradford Cheney I10 Essential ( primary) Aubrey Palma hypertension E66.9 Obesity, unspecified Office Visit 10/01/2018 1:00p Main Office Bradford Cheney Z00.00 Encntr kwan Palma M.D. general adult medical exam w/o abnormal findings E66.9 Obesity, unspecified Office Visit 07/29/2018 11:00a Main Office Bradford Cheney E11.9 Type 2 diabetes Aubrey Palma mellitus without complications E66.9 Obesity, unspecified Office Visit 05/02/2018 2:00p Main Office Bradford Cheney E11.9 Type 2 diabetes Aubrey Palma mellitus without complications E66.9 Obesity, unspecified R60.9 Edema, unspecified M25.552 Pain in left hip Office Visit 02/02/2018 10:00a Main Office Bradford Cheney E11.9 Type 2 diabetes Aubrey Palma mellitus without complications E66.9 Obesity, unspecified I10 Essential (primary) hypertension Office Visit 01/17/2018 11:00a Main Office Bradford Cheney I10 Essential ( primary) Aubrey Palma hypertension E66.9 Obesity, unspecified Z12.39 Encounter for oth screening for malignant neoplasm of breast Office Visit 12/24/2017 1:50p Main Office Bradford Cheney M54.5 Low back pain Aubrey Palma E66.9 Obesity, unspecified G47.30 Sleep apnea, unspecified Office Visit 11/10/2017 9:50a Main Office Bradford Cheney J45.31 Mild persistent Aubrey Palma asthma with (acute) exacerbation Office Visit 08/09/2017 2:30p Main Office Bradford Cheney E11.9 Type 2 diabetes Aubrey Palma mellitus without complications E66.9 Obesity, unspecified Office Visit 05/05/2017 9:30a Main Office Bradford Cheney E11.9 Type 2 diabetes Aubrey Palma mellitus without complications Office Visit 01/04/2017 10:30a Main Office Bradford Cheney E11.9 Type 2 diabetes Aubrey Palma mellitus without complications J45.22 Mild intermittent asthma with status asthmaticus J01.90 Acute sinusitis, unspecified Office Visit 12/29/2016 8:40a Main Office Bill Jeronimo E11.9 Type 2 diabetes M.DBishop mellitus without complications J45.31 Mild persistent asthma with (acute) exacerbation Office Visit 11/16/2016 2:00p Main Office Bradford Cheney M25.512 Pain in left Aubrey Palma shoulder Office Visit 09/19/2016 10:30a Main Office Bradford Cheney E11.9 Type 2 diabetes Verenice Palma. mellitus without complications Office Visit 07/19/2016 11:10a Main Office Bradford Cheney J45.31 Mild persistent JBishopMPrince. asthma with (acute) exacerbation Office Visit 06/16/2016 9:00a Main Office Bradford Cheney E11.9 Type 2 diabetes Verenice Palma. mellitus without complications J45.909 Unspecified asthma, uncomplicated B07.8 Other viral warts Z23 Encounter for immunization Office Visit 03/16/2016 10:00a Main Office Bradford Cheney E11.9 Type 2 diabetes Aubrey Pamla mellitus without complications Z23 Encounter for immunization Office Visit 02/21/2016 5:00p Main Office Bradford Cheney N93.9 Abnormal uterine Aubrey Palma and vaginal bleeding, unspecified Office Visit 01/25/2016 1:40p Main Office Bradford Cheney M54.9 Dorsalgia , Aubrey Palma unspecified Office Visit 12/15/2015 10:30a Main Office Bradford Cheney S23.3xxA Sprain of Aubrey Palma ligaments of thoracic spine, initial encounter J45.909 Unspecified asthma, uncomplicated E11.9 Type 2 diabetes mellitus without complications D49.2 Neoplasm of unsp behavior of bone, soft tissue, and skin Office Visit 12/01/2015 9:00a Main Office Bradford Cheney J45.901 Unspecified asthma MinervaMCarlos with (acute) exacerbation N39.3 Stress incontinence (female) (male) E11.9 Type 2 diabetes mellitus without complications I10 Essential (primary) hypertension Office Visit 11/25/2015 3:40p Main Office Marie Thompson J15.8 Pneumonia due to B. [employer] other specified bacteria Office Visit 08/19/2015 11:00a Main Office Bradford Cheney E11.9 Type 2 diabetes Aubrey Palma mellitus without complications J45.901 Unspecified asthma with (acute) exacerbation I10 Essential (primary) hypertension Z23 Encounter for immunization Office Visit 08/04/2015 10:10a Main Office Bradford Cheney J45.901 Unspecified asthma Aubrey Palma with (acute) exacerbation Office Visit 06/22/2015 5:00p Main Office Bradford Cheney 682.9 Cellulitis & Aubrey Palma Abscess Unspec Site Office Visit 05/14/2015 11:30a Main Office Bradford Cheney 250.00 Diabetes Mellitus Aubrey Palma W/O Compl Type II Or Unspec Controlled Office Visit 04/12/2015 4:30p Main Office Bradford Cheney 493.92 Asthma Unspec W/ Aubrey Palma Acute Exacerbation 724.2 Lumbago Office Visit 03/19/2015 1:50p Main Office Bradford Cheney 682.9 Cellulitis & Aubrey Palma Abscess Unspec Site 493.90 Asthma Unspec W/O Status Asthmaticus Office Visit 02/12/2015 3:00p Main Office Bradford Cheney V70.0 Examination General Aubrey Palma [facility] Routine [facility] 244.9 Hypothyroidism Other Unspec 380.22 Otitis Externa Other Acute Office Visit 02/01/2015 1:50p Main Office Bradford Cheney 493.90 Asthma Unspec W/O Aubrey Palma Status Asthmaticus 682.9 Cellulitis & Abscess Unspec Site Office Visit 07/22/2014 5:00p Main Office Bradford Cheney 493.92 Asthma Unspec W/ MinervaMCarlos Acute Exacerbation Office Visit 05/26/2014 1:50p Main Office Bradford Cheney 729.5 Pain In Limb Aubrey Palma Office Visit 02/16/2014 11:20a Main Office Bradford Cheney 461.9 Sinusitis Acute Aubrey Palma Unspec 493.90 Asthma Unspec W/O Status Asthmaticus Office Visit 01/02/2014 4:00p Main Office Bradford Cheney 401.1 Hypertension Benign Aubrey Palma 493.90 Asthma Unspec W/O Status Asthmaticus Office Visit 10/31/2013 Main Office Shravan, 461.9 Sinusitis Acute Unspec 9:50a Bradford Palma M.D. Office Visit 09/19/2013 Main Office Shravan, 465.0 Laryngopharyngitis Acute 2:20p Bradford Palma M.D. Office Visit 08/11/2013 Main Office Shravan, 466.0 Bronchitis Acute 1:50p Bradford Palma M.D. Office Visit 07/21/2013 Main Office Shravan, 401.1 Hypertension Benign 11:10a Bradford Palma M.D. 244.9 Hypothyroidism Other Unspec Office Visit 07/16/2013 9:20a Main Office Bradford Cheney 729.5 Pain In Limb Aubrey Palma Office Visit 06/02/2013 10:30a Main Office Bradford Cheney 401.1 Hypertension Jossie Palma M.D. 493.90 Asthma Unspec W/O Status Asthmaticus Office Visit 02/24/2013 10:30a Main Office Bradford Cheney 401.1 Hypertension Jossie Palma M.D. Office Visit 01/23/2013 9:10a Main Office Bradford Cheney 401.1 Hypertension Jossie Palma M.D. 682.2 Cellulitis & Abscess Trunk Office Visit 01/16/2013 8:40a Main Office Bradford Cheney 466.0 Bronchitis Ramon Palma M.D. Office Visit 10/21/2012 1:00p Main Office Bradford Cheney 466.0 Bronchitis Acute Aubrey Palma 401.1 Hypertension Benign Office Visit 09/17/2012 2:00p Main Office Bradford Cheney 466.0 Bronchitis Acute Aubrey Palma Office Visit 07/30/2012 4:50p Main Office Bill Jeronimo 682.2 Cellulitis & M.D. Abscess Trunk 599.0 UTI Urinary Tract Infection Site Not Spec Office Visit 07/02/2012 10:10a Main Office Bradford Cheney 724.2 Lumbago Aubrey Palma Office Visit 06/27/2012 2:30p Main Office Daina Broderick [employer] 786.50 Pain Chest Unspec V04.81 Need For Prophylactic Vaccination & Inoculation/Influenza Office Visit 03/01/2012 11:10a Main Office Bradford Cheney 401.1 Hypertension Jossie Palma M.D. 788.30 Incontinence Urinary Unspec 493.90 Asthma Unspec W/O Status Asthmaticus 465.9 URI Upper Respiratory Infections Acute Unspec Sites Office Visit 06/21/2011 3:00p Main Office Bradford Cheney V72.83 Examination Verenice Palma. Preoperative Other Spec 595.0 Cystitis Acute V04.81 Need For Prophylactic Vaccination & Inoculation/Influenza Office Visit 01/19/2011 9:20a Main Office Bradford Cheney 922.33 Contusion Aubrey Palma Interscapular Region Office Visit 11/18/2010 11:10a Main Office Bradford Cheney 401.1 Hypertension Jossie Palma M.D. 788.30 Incontinence Urinary Unspec Office Visit 09/12/2010 9:50a Main Office Bradford Cheney 465.9 URI Upper Aubrey Palma Respiratory Infections Acute Unspec Sites 493.90 Asthma Unspec W/O Status Asthmaticus Office Visit 07/08/2010 10:20a Main Office Bradford Cheney 493.90 Asthma Unspec W/O Aubrey Palma Status Asthmaticus V04.81 Need For Prophylactic Vaccination & Inoculation/Influenza Office Visit 06/02/2010 11:00a Main Office Bradford Cheney 401.1 Hypertension Jossie Palma M.D. 788.39 Incontinence Urinary Other 493.90 Asthma Unspec W/O Status Asthmaticus Office Visit 02/28/2010 3:40p Main Office Bradford Cheney 401.1 Hypertension Jossie Palma M.D. Office Visit 02/07/2010 3:40p Main Office Bradford Cheney 401.1 Hypertension Jossie Palma M.D. 311 Depressive Disorder Not Elsewhere Spec 788.30 Incontinence Urinary Unspec Office Visit 01/18/2010 9:50a Main Office Bradford Cheney 461.9 Sinusitis Acute Aubrey Palma Unspec Office Visit 11/15/2009 10:00a Main Office Bradford Cheney 786.52 Painful Respiration Aubrey Palma Office Visit 08/09/2009 9:50a Main Office Bradford Cheney 466.0 Bronchitis Acute Aubrey Palma 493.90 Asthma Unspec W/O Status Asthmaticus Office Visit 07/14/2009 2:50p Main Office Bradford Cheney 493.90 Asthma Unspec W/O Aubrey Palma Status Asthmaticus 466.0 Bronchitis Acute Office Visit 03/26/2009 3:10p Main Office Bradford Cheney 461.9 Sinusitis Acute Aubrey Palma Unspec 493.90 Asthma Unspec W/O Status Asthmaticus Office Visit 02/05/2009 5:00p Main Office Bradford Cheney 724.2 Warner Palma M.D. Office Visit 07/30/2008 1:17p Main Office Bradford Cheney 465.9 URI Narendra Palma M.D. Respiratory Infections Acute Unspec Sites Office Visit 01/21/2008 10:30a Main Office Bradford Cheney 493.90 Asthma Unspec W/O Aubrey Palma Status Asthmaticus Office Visit 11/21/2007 10:10a Main Office Bradford Cheney 461.9 Sinusitis Acute Aubrey Palma Unspec Office Visit 07/15/2007 9:20a Main Office Bill Jeronimo 493.90 Asthma Unspec W/O MCarlos Status Asthmaticus 477.9 Rhinitis Allergic Cause Unspec 461.9 Sinusitis Acute Unspec 465.9 URI Upper Respiratory Infections Acute Unspec Sites Office Visit 05/03/2007 1:30p Main Office Bradford Cheney 724.2 Warner Palma M.D. Office Visit 04/09/2007 2:10p Main Office Bradford Cheney 493.90 Asthma Unspec W/O Aubrey Palma Status Asthmaticus Office Visit 03/13/2007 3:10p Main Office Bradford Cheney 493.90 Asthma Unspec W/O Aubrey Palma Status Asthmaticus Office Visit 01/10/2007 3:50p Main Office Bradford Cheney 493.90 Asthma Unspec W/O Verenice Palma. Status Asthmaticus 466.0 Bronchitis Acute Office Visit 11/22/2006 1:20p Main Office Bradford Cheney 493.91 Asthma Unspec W/ JAubrey Alas Status Asthmaticus Office Visit 08/27/2006 10:10a Main Office Bradford Cheney 493.90 Asthma Unspec W/O Aubrey Palma Status Asthmaticus 466.0 Bronchitis Acute Office Visit 07/30/2006 1:30p Main Office Bradford Cheney 401.1 Hypertension Jossie Palma M.D. Office Visit 05/03/2006 1:10p Main Office Bradford Cheney 461.9 Sinusitis Acute Aubrey Palma Unspec Office Visit 03/13/2006 10:30a Main Office Bradford Cheney 461.9 Sinusitis Acute Aubrey Palma Unspec 466.0 Bronchitis Acute Office Visit 10/24/2005 2:20p Main Office Bradford Cheney 840.9 Sprains & Strains Aubrey Palma Shoulder & Upper Arm Unspec Office Visit 08/28/2005 1:00p Main Office Bradford Cheney 401.1 Hypertension Jossie Palma M.D. 272.4 Hyperlipidemia Other Unspec 493.90 Asthma Unspec W/O Status Asthmaticus Office Visit 04/19/2005 1:30p Main Office Bradford Cheney 477.9 Rhinitis Allergic Aubrey Palma Cause Unspec Office Visit 02/13/2005 1:00p Main Office Bradford Cheney 401.1 Hypertension Jossie Palma M.D. 493.90 Asthma Unspec W/O Status Asthmaticus Office Visit 02/01/2005 4:50p Main Office Bradford Cheney 493.90 Asthma Unspec W/O Aubrey Palma Status Asthmaticus Office Visit 12/26/2004 11:40a Main Office Bill Jeronimo 493.90 Asthma Unspec W/O M.DBishop Status Asthmaticus 466.0 Bronchitis Acute Office Visit 11/14/2004 10:20a Main Office Bradford Cheney 461.9 Sinusitis Acute Aubrey Palma Unspec Office Visit 10/14/2004 2:20p Main Office Bradford Cheney 790.6 Abnormal Blood Aubrey Palma Chemistry Other Office Visit 09/12/2004 9:20a Main Office Bradford Cheney 465.9 URI Upper Aubrey Palma Respiratory Infections Acute Unspec Sites Office Visit 02/17/2004 10:50a Main Office Bradford Cheney 493.90 Asthma Unspec W/O Aubrey Palma Status Asthmaticus Office Visit 01/01/2004 2:40p Main Office Bradford Cheney 401.1 Hypertension Jossie Palma M.D. Office Visit 12/22/2003 1:00p Main Office Bradford Cheney 493.90 Asthma Unspec W/O Aubrey Palma Status Asthmaticus 401.1 Hypertension Benign Office Visit 10/21/2003 1:40p Main Office Bradford Cheney 401.1 Hypertension Jossie Palma M.D. Office Visit 10/05/2003 11:20a Main Office Marie Thompson 401.1 Hypertension Benign [employer] Office Visit 09/01/2003 1:20p Main Office Bradford Cheney 250.00 Diabetes Mellitus Aubrey Palma W/O Compl Type II Or Unspec Controlled 401.1 Hypertension Benign Office Visit 08/14/2003 9:10a Main Office Bradford Cheney 461.9 Sinusitis Acute Aubrey Palma Unspec 493.90 Asthma Unspec W/O Status Asthmaticus Office Visit 07/17/2003 11:40a Main Office Bradford Cheney 493.90 Asthma Unspec W/O Aubrey Palma Status Asthmaticus Plan of Treatment Future Appointment(s):06/02/2019 9:00 am - Nurse Schedule at Main [id number] - Bradford Cheney M.D.M79.662 Pain in left lower legNew Orders:Lower Ext Doppler, Ordered: 04/02/19E66.9 Obesity, unspecified
[2019-04-14 22:03] VITALS: BP 129/63
[2019-04-14] MEDS ORDERED: Cephalexin CAP* 500 MG PO ONE ×2 (22:20→22:21)
--- NOTE | 2019-04-14 22:23 | UC ---
Skin Complaint HPI - HPI Summary HPI Summary: 63 yo female with left leg swelling x 1 week late last week had a negative doppler study now with anterior leg redness and pain no cp or sob hx of DVT - History of Current Complaint Chief Complaint: UCLowerExtremity Time Seen by Provider: 04/14/19 22:08 Stated Complaint: LEFT LEG PAIN Hx Obtained From: Patient Onset/Duration: Gradual Onset, Lasting Days Timing: Constant Onset Severity: Mild Current Severity: Moderate Pain Intensity: 6 Pain Scale Used: 0-10 Numeric Location: Other - left leg Character: Swelling, Pain, Redness Aggravating Factor(s): Touch, Other - wt bearing Associated Signs & Symptoms: Positive: Tenderness. Negative: Nausea, Vomiting, Numbness, Thirst, Diaphoresis, Weakness, Pallor, Shivering, Difficulty Breathing , Fever, Chills, Cough, Wheezing, Chest Pain, Hoarseness, Throat Tightening, Rash, Abdominal Pain, Lightheadedness, Syncope, Drainage, Bruising, Red Streaks , Joint Swelling - Allergy/Home Medications Allergies/Adverse Reactions: Allergies Allergy/AdvReac Type Severity Reaction Status Date / Time No Known Allergies Allergy Verified 04/14/19 21:54 Home Medications: Home Medications Atorvastatin* [Lipitor*] 10 mg PO QPM 04/14/19 [History Confirmed 04/14/19] Benazepril (NF) [Lotensin (NF)] 5 mg PO DAILY 04/14/19 [History Confirmed ] Fluticasone/Vilanterol [Breo Ellipta 200-25 Mcg INH] 1 puff QAM 04/14/19 [ History Confirmed 04/14/19] Levothyroxine TAB* [Synthroid TAB*] 25 mcg PO QAM 04/14/19 [History Confirmed ] Meloxicam 7.5 mg PO BID 04/14/19 [History Confirmed 04/14/19] Morphine Sulfate [Arymo ER] 1 tab TID PRN 04/14/19 [History Confirmed 04/14/19] Omeprazole 1 tab PO BID 04/14/19 [History Confirmed 04/14/19] Oxybutynin XL TAB* [Ditropan XL TAB*] 15 mg PO DAILY 04/14/19 [History Confirmed 04/14/19] Oxycodone TAB(NF) [Oxycodone HCl 10 MG] 5 mg BID PRN 04/14/19 [History Confirmed 04/14/19] amLODIPine TAB* [Norvasc 5 mg TAB*] 5 mg PO DAILY 04/14/19 [History Confirmed ] metFORMIN* [Glucophage 500 MG TAB *] 500 mg PO DAILY 04/14/19 [History Confirmed 04/14/19] PMH/Surg Hx/FS Hx/Imm Hx Previously Healthy: Yes Endocrine History: Diabetes, Dyslipidemia Cardiovascular History: Hypertension Respiratory History: Pulmonary Embolism - Surgical History Surgical History: Yes Surgery Procedure, Year, and Place: LEFT SHOULDER. BILAT KNEE. RIGHT HIP. HYSTERECTOMY - Social History Alcohol Use: None Substance Use Type: None Smoking Status (MU): Never Smoked Tobacco Review of Systems All Other Systems Reviewed And Are Negative: Yes Constitutional: Positive: Negative Skin: Positive: Negative Eyes: Positive: Negative ENT: Positive: Negative Respiratory: Positive: Negative Cardiovascular: Positive: Negative Gastrointestinal: Positive: Negative Genitourinary: Positive: Negative Musculoskeletal: Positive: Edema. Negative: Arthralgia, Calf Tenderness, Decreased ROM, Myalgia Neurological: Positive: Negative Psychological: Positive: Negative Physical Exam Triage Information Reviewed: Yes Appearance: Well-Appearing, No Pain Distress, Other: - BMI 49 Vital Signs: Initial Vital Signs Temp 97.8 F 04/14/19 21:55 Pulse 73 04/14/19 21:55 Resp 16 04/14/19 21:55 BP 129/63 04/14/19 21:55 Pulse Ox 99 04/14/19 21:55 Eyes: Positive: Conjunctiva Clear ENT: Positive: Hearing grossly normal. Negative: Nasal congestion, Nasal drainage, Trismus, Muffled voice, Hoarse voice Dental: Negative: Abscess @ Neck: Positive: Supple, No Lymphadenopathy Respiratory: Positive: Lungs clear, Normal breath sounds, No respiratory distress, No accessory muscle use Cardiovascular: Positive: RRR, No Murmur Abdomen Description: Positive: Nontender Musculoskeletal: Positive: Edema @ - bilater pre tibial edema/erythem left anterior boyd Neurological: Positive: Alert Psychological Exam: Normal Skin Exam: Other - see image Images Front/Back of Body, Lg ([place]): 1 - pretibial edema/warmth/erthyema. calf not tender/no venous cords Course/Dx - Diagnoses Provider Diagnosis: Left leg cellulitis Discharge - Sign-Out/Discharge Documenting (check all that apply): Patient Departure All imaging exams completed and their final reports reviewed: No Studies - Discharge Plan Condition: Stable Disposition: HOME Prescriptions: Cephalexin CAP* [Keflex CAP*] 500 mg PO QID #28 cap Patient Education Materials: Cellulitis (ED) Referrals: Bradford Cheney MD [Primary Care Provider] - As Soon As Possible Additional Instructions: Call your MD in AM to discuss your diagnosis and follow up - Billing Disposition and Condition Condition: STABLE Disposition: Home
== END 2019-04-14 22:34 | disposition home or self-care (01) ==
LOC: UCCORT 20:49
DX: L03.115 Cellulitis of right lower limb (principal); Z86.718 Personal history of other venous thrombosis and embolism; E11.9 Type 2 diabetes mellitus without complications; Z79.84 Long term (current) use of oral hypoglycemic drugs; E78.5 Hyperlipidemia, unspecified; I10 Essential (primary) hypertension
CPT/HCPCS: 99203; A9270-GY; G0463